=== PATIENT | male | born 1955 | race Caucasian/White ===

== ENCOUNTER 2018-08-21 07:40 | Outpatient (CLI) | payer OTHER, SELFPAY ==
[2018-08-21] VITALS (9 sets, daily range): BP systolic 116–139; BP diastolic 76–95; PULSE 60–70; RESP 16–18; TEMP 36; O2SAT 95–100
--- NOTE | 2018-08-21 07:42 | DI.RAD.S_ITS ---
PROCEDURE: PAIN SI JOINT INJECTION DEVON COMPARISON: None. INDICATIONS: SACROCOCCYGEAL DISORDER FINDINGS: Bilateral needle tip localization has been performed at the inferior aspect of each sacroiliac joint for steroid injection. IMPRESSION: Successful inferior sacroiliac joint needle tip localization bilaterally, for steroid injection. Dictated by: Duncan Das M.D. on 08/21/2018 at 9:35 Approved by: Duncan Das M.D. on 08/21/2018 at 9:36
[2018-08-21] MEDS: MIDAZOLAM 5 MG/5 ML VIAL IV (09:04)
[2018-08-21] MEDS: fentaNYL 100 MCG/2 ML INJ 50 MCG IV (09:05)
[2018-08-21] MEDS: IOPAMIDOL 15 ML VIAL 3 ML INJ (09:12)
[2018-08-21] MEDS: BUPIVACAINE 0.5% (PF) VIAL 2 ML INJ (09:12)
[2018-08-21] MEDS: BETAMETHASONE 30 MG/5 ML MDV 12 MG INJ (09:12)
--- NOTE | 2018-08-21 09:20 | PM.PROC.1 ---
Procedures Date/Time Date of procedure: 08/21/18 Time of procedure: 09:21 General Procedure description: PREOP Dx: Sacroiliac joint pain/DJD POST OP DX: Sacroiliac Joint Pain/DJD Procedures: Fluoroscopic guided contrast controlled bilateral sacroiliac joint injection Physician: Gunnar Belcher D.O. Indications: New is referred by Dr. Nunez for treatment of bilateral sacroiliac joint DJD Description of procedure Fluoroscopic guided, contrast controlled right sacroiliac joint injection Following denial of allergies and review of potential side effects and complications, including, but not necessarily limited to, infection, allergic reaction, local tissue breakdown, temporary as well as permanent nerve injury, paralysis, stroke and possible , the patient indicated that they understood and agreed to proceed. An informed consent was signed by the patient, witnessed by a nurse, and placed in the patient's chart. Additionally, other treatment options including modalities, medications, and physical therapy were reviewed with the patient. After review of previous anaesthesic history and IV conscious sedation the patient was deemed safe to proceed with todays procedure with IV conscious sedation as ASA class II designation. Safety time-out was performed to confirm patient ID, procedure to be performed and site of procedure. IV sedation was accomplished with a combination of 3mg of Versed and 50mcg of Fentanyl was administered by the RN after DO order, titrated to patient comfort during the course of the procedure while the patient remained responsive to all verbal commands In the prone position following sterile prep and drape of the pelvic region, the hyper lucency on in the inferior aspect of the sacroiliac joint was identified fluoroscopically the skin was anesthetized be a 25 gauge 1 eventual with approximately 2 cc of 1% lidocaine solution. At this point, a 22 gauge 3 in spinal needle was atraumatically introduced and advanced under fluoroscopic guidance into the inferior aspect of the right sacroiliac joint. Following negative aspiration, approximately 0.3 cc of Isovue-300 was injected confirming intra-articular placement without vascular uptake. Radiographic data, including multiple fluoroscopic views of the pelvis, reveals a spinal needle in the sacroiliac joint hyper lucent zone. Subsequent view show flow contrast tear superiorly and inferiorly within the joint capsule without vascular intrathecal uptake. At this point a total of 1cc or 0 8 of 0.5% Marcaine was combined with 1cc of 6mg of betamethasone was injected without incident. Attention was then refocused to the left sacroiliac joint where identical procedure was replicated. The procedure tolerated the procedure well without signs or symptoms of complications prior to transfer to the recovery area continued monitoring without incident. The patient was then transferred to the recovery area with a bur observed for an appropriate time after the injection. The patient reverted a vas score of 7 prior to the procedure and postprocedure vas of 1. Total fluoroscopy time: 22.7 sec Total conscious sedation time: 24 min Postop instructions The patient was provided with a pain like to continue to record the patient's response to the target specific procedure prior to the patient's follow-up visit with the referring physician. Additionally, specific post injection care instructions and a contact number to our office were provided if concerns arise regarding the possible complications associated with procedure are suspected. Gunnar Belcher D.O. Complications: none
--- NOTE | 2018-08-21 09:48 | PC.NURSE ---
Pt returned from procedure via wheelchair awake and alert, able to transfer from W/C to chair with standby assist. Resumed monitoring from Ngozi DOCKERY.
== END 2018-08-21 09:42 ==
LOC: RAD 07:42
PROVIDERS: PCP Family Medicine; Visit Provider Physical Medicine & Rehabilitation
DX: M53.3 Sacrococcygeal disorders, not elsewhere classified (principal); M47.898 Other spondylosis, sacral and sacrococcygeal region
CPT/HCPCS: 27096; 99152; J0702; J2250; J3010

== ENCOUNTER 2018-10-18 07:51 | Outpatient (CLI) | payer MEDICARE, OTHER, SELFPAY ==
[2018-10-18] VITALS (8 sets, daily range): BP systolic 127–142; BP diastolic 81–93; PULSE 64–80; RESP 16; TEMP 36.1; O2SAT 96–100
--- NOTE | 2018-10-18 07:54 | DI.RAD.S_ITS ---
PROCEDURE: PAIN L/S FACET INJ/BLK 1ST DEVON COMPARISON: None. INDICATIONS: SPONDYLOSIS FINDINGS: 6 intraoperative fluoroscopy images demonstrate needle placement at L4, L5 and S1 bilaterally. IMPRESSION: Fluoroscopy assistance for needle placement. Dictated by: Michelle Menezes M.D. on 10/18/2018 at 13:22 Approved by: Michelle Menezes M.D. on 10/18/2018 at 13:22
[2018-10-18] MEDS: fentaNYL 100 MCG/2 ML INJ 50 MCG IV (09:10)
[2018-10-18] MEDS: MIDAZOLAM 5 MG/5 ML VIAL IV (09:10)
[2018-10-18] MEDS: LIDOCAINE 1% 20 ML INJ 10 ML INJ (09:18)
[2018-10-18] MEDS: IOPAMIDOL 15 ML VIAL 3 ML INJ (09:18)
[2018-10-18] MEDS: BUPIVACAINE 0.5% (PF) VIAL 2 ML INJ (09:18)
[2018-10-18] MEDS: DEXAMETHASONE 10 MG/ML VIAL 20 MG IV (09:18)
--- NOTE | 2018-10-18 09:27 | PC.NURSE ---
pt tolerated procedure well. Pt able to get off the table with standby assist. Transferred pt via wheelchair to pre procedure room for continued monitoring with Ngozi DOCKERY.
--- NOTE | 2018-10-18 09:42 | PM.PROC.1 ---
Procedures Date/Time Date of procedure: 10/18/18 Time of procedure: 09:42 General Procedure description: Procedure description: 1. FACET ARTHROPATHY PROCEDURES: 1. BILATERAL- L4, L5 and S1 MB BLOCKS PHYSICIAN: DO JACKY Og is referred by for treatment of Bilateral Axial LBP. DESCRIPTION OF PROCEDURE Fluoroscopically guided, contrast-controlled bilateral L4, L5 and S1 medial branch blocks with 0.5cc of 0.5% Marcaine. Following review of allergy and review of potential side effects and complications, including, but not necessarily limited to, infection, allergic reaction, local tissue breakdown, nerve injury, paralysis, stroke and possible , the patient indicated that the patient understood and agreed to proceed. An informed consent document was signed by the patient, witnessed by a nurse, and placed in the patient's chart. After review of previous anaesthesic history and IV conscious sedation the patient was deemed safe to proceed with todays procedure with IV conscious sedation as ASA class II designation. Safety time-out was performed to confirm patient ID, procedure to be performed and site of procedure. IV sedation was accomplished with a combination of 2mg of Versed and 50mcg of Fentanyl was administered by the RN after DO order, titrated to patient comfort during the course of the procedure while the patient remained responsive to all verbal commands In the prone position, following sterile prep and drape of the lumbar region, the right L4, L5 and S1 anatomical location of the medial branch of the dorsal ramus was identified fluoroscopically. Subsequently an anesthetic skin wheal using 1% lidocaine solution was initiated at each of the anatomical spots. Subsequently then a 22-gauge 3.5-inch spinal needle was atraumatically introduced and advanced under fluoroscopic guidance at each of the corresponding sites at the right L4, L5 and S1 MB. After negative aspiration, 0.2 cc of Isovue 200 was injected, confirming placement without vascular or intrathecal uptake. Subsequently then 0.5 cc of 0.5% Marcaine solution was injected at each of the corresponding sites at the right L4, L5 and S1 medial branch locations. The identical procedure was replicated on the left. The patient tolerated the procedure well without signs or symptoms of complications prior to transfer to the recovery area continued monitoring without incident. Post-procedure, the patient was monitored initiating provocative activities to measure the amount of relief from block of the facetogenic pain. The patient reported a VAS of 7 prior to the procedure and a post-procedure VAS of 1. It has been a pleasure to assist in the diagnostic and therapeutic care of your patient. Total Fluoroscopy Time: 24.8 seconds Total Conscious Sedation Time: 24min POST OP INSTRUCTIONS The patient was provided with a Pain Log to complete over the next several hours and subsequent days prior to the patient's follow up with the ordering physician. If the patient has floor and wall applier liquid relief to the solution applied, then they may be a candidate for medial branch rhizotomy. The patient is aware, was provided, once again, with a Pain Log and will follow up with the referring physician for review and clinical correlation Gunnar Beclher DO Complications: none
== END 2018-10-18 09:58 | disposition home or self-care (01) ==
LOC: RAD 07:53
PROVIDERS: PCP Family Medicine; Visit Provider Physical Medicine & Rehabilitation
DX: M47.816 Spondylosis without myelopathy or radiculopathy, lumbar region (principal); M47.817 Spondylosis without myelopathy or radiculopathy, lumbosacral region
CPT/HCPCS: 64493; 64494; 99152; J0702; J1100; J2250; J3010

== ENCOUNTER 2018-12-25 07:22 | Outpatient (CLI) | payer MEDICARE, OTHER, SELFPAY ==
[2018-12-25] VITALS (12 sets, daily range): BP systolic 128–147; BP diastolic 84–97; PULSE 61–80; RESP 14–18; TEMP 36.1; O2SAT 66–100
--- NOTE | 2018-12-25 07:25 | DI.RAD.S_ITS ---
PROCEDURE: PAIN L/S MED/LAT N RFA BILAT INDICATIONS: SPONDYLOSIS FINDINGS: Fluoroscopic spot filming was performed to verify placement of spinal needles at the L4, L5, S1 level(s), as labeled on the films. Appropriate location(s) of the needle tip(s) was confirmed by injection of iodinated contrast. Dictated by: Renny Ann M.D. on 12/25/2018 at 10:28 Approved by: Renny Ann M.D. on 12/25/2018 at 10:34
[2018-12-25] MEDS: MIDAZOLAM 5 MG/5 ML VIAL IV (08:36)
[2018-12-25] MEDS: fentaNYL 100 MCG/2 ML INJ 50 MCG IV (08:37)
[2018-12-25] MEDS: LIDOCAINE 1% 20 ML 10 ML INJ (09:00)
--- NOTE | 2018-12-25 09:21 | P.PCN_ITS ---
Procedures Date/Time Date of procedure: 12/25/18 Time of procedure: 09:22 General Procedure description: PREOP DIAGNOSIS 1. RECALCITRANT FACET ARTHROPATHY, POST OP DIAGNOSIS 1. RECALCITRANT FACET ARTHROPATHY PROCEDURES 1. BILATERAL L4 AND L5 MEDIAL BRANCH RADIOFREQUENCY NEUROTOMY AND S1 DORSAL RAMUS BRANCH RADIOFREQUENCY NEUROTOMY, PHYSICIAN: Gunnar Belcher DO INDICATIONS: New is referred by Dr. Nunez for treatment of facet arthropathy. DESCRIPTION OF PROCEDURE Right L4 and L5 medial branch radiofrequency neurotomy and right S1 dorsal ramus radiofrequency neurotomy under fluoroscopy with conscious sedation. The patient is well known to this clinic having undergone previous facet injections with good but temporary relief. The patient has experienced appropriate, concordant relief with previous facet and median branch blocks but the patient's pain has been recalcitrant to further conservative measures. Therefore, based upon the patient's relief and persistent symptoms, the patient is considered an appropriate candidate for facet rhizotomy. All of the patient's questions regarding the risks versus benefits of the procedure, including, but not limited to, bleeding, infection, temporary as well as lasting nerve injury, paralysis, stroke, and , as well treatment alternatives were answered to satisfaction. After obtaining informed consent, denial of pertinent drug allergies, as well as being made aware of the potential risks of bleeding, infection, spinal cord trauma, paralysis, temporary and permanent nerve damage, seizure, stroke, and possible , the patient was brought to the fluoroscopy suite and positioned prone on the fluoroscopy table. The lumbar region was prepped with Betadine and covered with a fenestrated drape in the usual sterile fashion. Appropriate monitors applied including pulse oximeter, pulse, and blood pressure for regular monitoring throughout the procedure. After review of previous anaesthesic history and IV conscious sedation the patient was deemed safe to proceed with todays procedure with IV conscious sedation as ASA class II designation. Safety time-out was performed to confirm patient ID, procedure to be performed and site of procedure. IV sedation was accomplished with a combination of 5mg of Versed and 50mcg of Fentanyl administered by the RN after DO order, titrated to patient comfort during the course of the procedure while the patient remained responsive to all verbal commands. After local infiltration using 1% lidocaine, under fluoroscopic guidance, a 10- cm RF insulated needle with a 10-mm active tip was positioned parallel to the junction of the right sacral ala and the superior articulating process where the S1 dorsal ramus resides. Needle placement was confirmed with sensory stimulation at 50 Hz, with motor stimulation of .5v on the right which produced local stimulation without radicular component. The stimulation was then increased to 1.5v with, once again, only local multifidus stimulation without radicular component. This was then followed by two discreet lesions performed at 80 degrees Celsius for 90 seconds each. The needle was then removed and the identical procedure was performed along the length of the right L5 medial branch with motor stimulation at .7v on the right. The identical procedure was once again performed along the length of the right L4 medial branch with motor stimulation of .5v on the right. The identical procedure was repeated on the left. The patient tolerated the procedure well without signs or symptoms of complications prior to transfer to the recovery area continued monitoring without incident. The patient was then transferred to the recovery area where they were observed for an appropriate period of time after the injection. The patient reported a VAS score of 9 prior to the procedure and a post-procedure VAS of 0. Total Fluoroscopy Time: 22.7 seconds Total Conscious Sedation Time: 34min POST OP INSTRUCTIONS The patient was provided a Pain Log to continue to record the patient's response to the target-specific procedure prior to the patient's follow-up visit with the referring physician. Additionally, specific post-injection care instructions and a contact number to our office were provided if concerns arise regarding possible complications associated with the procedure are suspected. Gunnar Belcher DO Complications: none
[2018-12-25] MEDS: BUPIVACAINE 0.25% (PF) VIAL 5 ML INJ (09:26)
--- NOTE | 2018-12-25 09:37 | PC.NURSE ---
recieved via w/c, post procedure,able to transfer self from w/c to recliner, without assist, water provided and tolerated, assuming care from Tisha Daniel Rn, pt reports, pain free.
--- NOTE | 2018-12-25 15:53 | PC.NURSE ---
Late entry: Post procedure note--Patient tolerated procedure well. VSS with procedural sedation. O2 sat WNL. No complaints of pain when transfered from procedure table to wheelchair. Transported for post procedure monitoring and discharge via w/c. Report given to Gautam Moreau RN
== END 2018-12-25 09:35 | disposition home or self-care (01) ==
LOC: RAD 07:23
PROVIDERS: PCP Family Medicine; Visit Provider Physical Medicine & Rehabilitation
DX: M47.817 Spondylosis without myelopathy or radiculopathy, lumbosacral region (principal); M47.816 Spondylosis without myelopathy or radiculopathy, lumbar region
CPT/HCPCS: 64635; 64636; 99152; 99153; J2250; J3010

== ENCOUNTER → 2019-08-16 10:19 | Outpatient (CLI) | payer MEDICARE, OTHER, SELFPAY ==
--- NOTE | 2019-08-16 | DI.RAD.S_ITS ---
PROCEDURE: XR CERVICAL SPINE 1V INDICATIONS: Other spondylosis with myelopathy, cervical region TECHNIQUE: Single lateral view of the cervical spine acquired. COMPARISON: [facility], RG, XR C-SPINE 4-6V, 11/02/2017, 12:03. FINDINGS: Bones: No fractures or dislocations to the C7 level. No suspicious bony lesions. Straightening of the normal lordotic curvature. Multilevel degenerative endplate sclerosis and spurring. Diffuse facet arthropathy. Postoperative changes related to C5-C7 ACDF with interbody cage graft. Hardware appears intact. There is expected postoperative alignment. Grade 1 anterolisthesis of C3 on C4 and C4 on C5. Mild narrowing of the remaining cervical disc spaces. Soft tissues: No prevertebral soft tissue swelling. IMPRESSION: Postsurgical changes from C5-C7. Elsewhere, unchanged cervical spondylosis and facet arthropathy. Multilevel spondylolisthesis unchanged. Dictated by: Renny Ann M.D. on 08/16/2019 at 12:57 Approved by: Renny Ann M.D. on 08/16/2019 at 12:59
== END ==
PROVIDERS: PCP Family Medicine; Referring Provider Neurological Surgery; Visit Provider Neurological Surgery
DX: M47.12 Other spondylosis with myelopathy, cervical region (principal); M47.22 Other spondylosis with radiculopathy, cervical region; M43.12 Spondylolisthesis, cervical region; Z98.1 Arthrodesis status
CPT/HCPCS: 72020

== ENCOUNTER → 2020-04-04 07:58 | Outpatient (CLI) | payer MEDICARE, OTHER, SELFPAY ==
[2020-04-04 09:07] LABS: Add Manual Diff / Slide Review NO; Basophils Absolute Auto 0 /uL (0-100); Basophils Percent Auto 0.7 % (0-2); Eosinophils Absolute Auto 100 /uL (0-450); Eosinophils Percent Auto 1.5 % (2-4); Hematocrit 44.2 % (41-53); Hemoglobin 15.9 g/dL (13.5-17.5); Lymphocytes Absolute Auto 1500 /uL (1100-4500); Lymphocytes Percent Auto 36.8 % (25-40); Mean Corpuscular Hemoglobin 34.2 PG (26-34); Mean Corpuscular Volume 94.9 fL (80-100); Monocytes Absolute Auto 600 /uL (0-900); Monocytes Percent Auto 13.6 % (3-14); Neutrophils Absolute Auto 1900 /uL (1500-7000); Neutrophils Percent Auto 47.4 % (50-75); Platelet Count 162 X10^3/uL (150-400); Red Blood Cell Count 4.66 X10^6/uL (4.5-5.9); Red Cell Distribution Width 12.4 % (11.6-14.8); White Blood Cell Count 4.1 X10^3/uL (4.5-11.0)
[2020-04-04 09:13] LABS: Hemoglobin A1C% w Est Avg Glu 5.7 % (4.0-6.0)
[2020-04-04 09:15] LABS: Alanine Aminotransferase 30 IU/L (<50); Albumin 4.5 g/dL (3.5-5.0); Albumin Globulin Ratio 1.5 (1.0-2.8); Alkaline Phosphatase 45 U/L (38-126); Aspartate Aminotransferase 38 IU/L (17-59); BUN Creatinine Ratio 12.4 (6-22); Bilirubin Total 0.6 mg/dL (0.2-1.3); Blood Urea Nitrogen 12 mg/dL (9-20); Calcium 9.8 mg/dL (8.4-10.2); Carbon Dioxide 33 mmol/L (22-32); Chloride 92 mmol/L (98-107); Cholesterol 141 mg/dL (140-199); Estimated Glomerular Filt Rate > 60.0 mL/min (>60); Globulin 3.1 g/dL (1.7-4.1); Glucose 102 mg/dL (80-110); HDL Cholesterol 71 mg/dL (40-60); HEMOLYSIS < 15 (0-50); LDL Cholesterol Calculated 63 mg/dL (<100); Potassium 4.6 mmol/L (3.4-5.1); Sodium 129 mmol/L (137-145); Total Protein 7.6 g/dL (6.3-8.2); Triglycerides 34 mg/dL (35-150)
[2020-04-04 09:40] LABS: Prostate Specific Antigen Scrn 0.862 ng/mL (0.1-4.0)
[2020-04-04 09:41] LABS: TSH w/ Reflex to FT4 0.91 uIU/mL (0.47-4.68)
[2020-04-04 10:24] LABS: Creatinine Urine Random 118.3 mg/dL
[2020-04-04 10:29] LABS: Microalbumi Creatinin Ratio Ur 10.9 ug/mg CR (<30); Microalbumin Urine Random 1.3 mg/dL (0-1.6)
== END ==
PROVIDERS: PCP Family Medicine; Referring Provider Family Medicine; Visit Provider Family Medicine
DX: I10 Essential (primary) hypertension (principal); R73.03 Prediabetes; Z12.5 Encounter for screening for malignant neoplasm of prostate; Z13.220 Encounter for screening for lipoid disorders; Z13.29 Encounter for screening for other suspected endocrine disorder
CPT/HCPCS: 36415; 80053; 80061; 82043; 82570; 83036; 84443; 85025; G0103

== ENCOUNTER → 2020-05-04 11:43 | Outpatient (CLI) | payer MEDICARE, OTHER, SELFPAY ==
--- NOTE | 2020-05-04 | DI.RAD.S_ITS ---
PROCEDURE: XR CERVICAL SPINE 1V INDICATIONS: Other spondylosis with radiculopathy, cervical region TECHNIQUE: Single lateral view of the cervical spine acquired. COMPARISON: [facility], CR, XR CERVICAL SPINE 1V, 08/16/2019, 10:14. FINDINGS: Bones: Postsurgical changes are seen from anterior fusion extending from the level of C5 through C7. The hardware is intact. No acute osseous fracture is seen. There is mild straightening of the cervical spine, which may be related to positioning. Mild facet hypertrophy and uncovertebral joint hypertrophy are seen at multiple levels. . Soft tissues: No prevertebral soft tissue swelling. IMPRESSION: Postsurgical changes again seen from C5 through C7. Multilevel mild spondylosis is redemonstrated. Dictated by: Marcelo Odonnell M.D. on 05/04/2020 at 16:00 Approved by: Marcelo Odonnell M.D. on 05/04/2020 at 16:02
== END ==
PROVIDERS: PCP Family Medicine; Referring Provider Neurological Surgery; Visit Provider Neurological Surgery
DX: M47.12 Other spondylosis with myelopathy, cervical region (principal); M47.22 Other spondylosis with radiculopathy, cervical region
CPT/HCPCS: 72020

== ENCOUNTER → 2020-09-01 10:02 | Outpatient (CLI) | payer MEDICARE, OTHER, SELFPAY ==
[2020-09-01 12:00] LABS: Alanine Aminotransferase 22 IU/L (<50); Albumin 4.2 g/dL (3.5-5.0); Albumin Globulin Ratio 1.4 (1.0-2.8); Alkaline Phosphatase 45 U/L (38-126); Aspartate Aminotransferase 40 IU/L (17-59); BUN Creatinine Ratio 11.8 (6-22); Bilirubin Total 0.8 mg/dL (0.2-1.3); Blood Urea Nitrogen 11 mg/dL (9-20); Calcium 9.5 mg/dL (8.4-10.2); Carbon Dioxide 29 mmol/L (22-32); Chloride 93 mmol/L (98-107); Estimated Glomerular Filt Rate > 60.0 mL/min (>60); Glucose 98 mg/dL (80-110); HEMOLYSIS < 15 (0-50); Potassium 4.2 mmol/L (3.4-5.1); Sodium 127 mmol/L (137-145); Total Protein 7.2 g/dL (6.3-8.2)
== END ==
PROVIDERS: PCP Family Medicine; Referring Provider Family Medicine; Visit Provider Family Medicine
DX: I10 Essential (primary) hypertension (principal)
CPT/HCPCS: 36415; 80053

== ENCOUNTER → 2020-09-04 10:44 | Outpatient (CLI) | payer MEDICARE, OTHER, SELFPAY ==
--- NOTE | 2020-09-04 10:46 | DI.RAD.S_ITS ---
PROCEDURE: XR LUMBAR SPINE MIN 4V INDICATIONS: BACK PAIN TECHNIQUE: 5 views of the lumbar spine were acquired, including bilateral oblique views. COMPARISON: None. FINDINGS: Bones: 5 nonrib-bearing vertebrae are present. There is normal bony alignment. No vertebral body compression fractures. No suspicious bony lesions. Facet osteoarthritis is mild at L4-5 and adve-gn-qrsimetm at L5-S1. Soft tissues: Overlying bowel gas pattern is normal. No suspicious soft tissue calcifications. Oblique images: No pars defects. IMPRESSION: Low lumbosacral spine facet osteoarthritis as noted, no spinal or foraminal stenosis is seen. No prior trauma. Dictated by: Duncan Das M.D. on 09/04/2020 at 14:35 Approved by: Duncan Das M.D. on 09/04/2020 at 14:36
== END ==
PROVIDERS: PCP Family Medicine; Referring Provider Physical Medicine & Rehabilitation; Visit Provider Physical Medicine & Rehabilitation
DX: M47.817 Spondylosis without myelopathy or radiculopathy, lumbosacral region (principal); M53.3 Sacrococcygeal disorders, not elsewhere classified
CPT/HCPCS: 72110

== ENCOUNTER → 2020-09-17 16:08 | Outpatient (CLI) | payer MEDICARE, OTHER, SELFPAY ==
--- NOTE | 2020-09-17 16:15 | DI.MRI.S_ITS ---
PROCEDURE: MR LUMBAR SPINE WO CON INDICATIONS: Left L4-5 transforaminal TAMMY TECHNIQUE: Noncontrast sagittal T1 spin echo and T2 fast echo, sagittal STIR, axial T1 and T2 fast spin echo through the lumbar spine. In cases with scoliosis, additional coronal T2 fast spin echo may be performed. COMPARISON: None. FINDINGS: Image quality: Excellent. Alignment and Curvature: There is normal bony alignment. Bone Marrow: Benign, intraosseous hemangioma noted in the L4 vertebral body. No acute vertebral body compression fractures. Spinal Cord: Conus medullaris terminates at the L1 level. Visualized cord demonstrates normal signal and size. Paraspinous Soft Tissues: No paravertebral masses. T12-L1: Normal appearance. L1-L2: Normal appearance. L2-L3: Loss of disc signal. Minimal, diffuse disc bulge. Mild bilateral facet hypertrophy. No central stenosis. Mild bilateral neural foraminal narrowing. No neural compression. Fissures noted in the anterior and posterior annulus. L3-L4: Loss of disc signal. Mild, diffuse disc bulge. Mild bilateral facet hypertrophy. Mild narrowing of the central canal. Mild bilateral neural foraminal narrowing. No neural compression. L4-L5: Loss of disc signal. Mild, diffuse disc bulge. Small central disc protrusion. Mild bilateral facet hypertrophy. Mild narrowing of the central canal. Mild to moderate bilateral neural foraminal narrowing. No neural compression. Fissures noted in the anterior and posterior annulus. L5-S1: Normal appearance. IMPRESSION: 1. Mild multilevel degenerative disc disease. 2. Mild multilevel facet arthropathy. 3. No severe central canal narrowing. 4. No severe neural foraminal narrowing. 5. No neural compression. 6. L2-L3 and L4-L5 disc annulus fissures. Dictated by: Ludmila Sanchez MD, PhD on 09/18/2020 at 11:33 Approved by: Ludmila Sanchez MD, PhD on 09/18/2020 at 11:39
== END ==
PROVIDERS: PCP Family Medicine; Referring Provider Physical Medicine & Rehabilitation; Visit Provider Physical Medicine & Rehabilitation
DX: M51.26 Other intervertebral disc displacement, lumbar region (principal); M51.36 Other intervertebral disc degeneration, lumbar region; M47.816 Spondylosis without myelopathy or radiculopathy, lumbar region
CPT/HCPCS: 72148

== ENCOUNTER → 2020-10-16 09:46 | Outpatient (CLI) | payer MEDICARE, OTHER, SELFPAY ==
[2020-10-16 10:56] LABS: COVID19 -Nasal RAPID Negative (Negative)
== END ==
PROVIDERS: PCP Family Medicine; Visit Provider Surgery
DX: Z20.822 Contact with and (suspected) exposure to COVID-19 (principal)
CPT/HCPCS: 87635; C9803

== ENCOUNTER 2020-10-17 14:53 | Emergency (ER) | payer MEDICARE, OTHER, SELFPAY ==
[2020-10-17 15:08] VITALS: BP 142/93; PULSE 99; RESP 18; TEMP 36.5; O2SAT 98; BMI 25.8
[2020-10-17 16:09] LABS: Add Manual Diff / Slide Review NO; Basophils Absolute Auto 0 /uL (0-100); Basophils Percent Auto 0.7 % (0-2); Eosinophils Absolute Auto 0 /uL (0-450); Eosinophils Percent Auto 0.3 % (2-4); Hematocrit 43.2 % (41-53); Hemoglobin 15.2 g/dL (13.5-17.5); Lymphocytes Absolute Auto 900 /uL (1100-4500); Lymphocytes Percent Auto 16.6 % (25-40); Mean Corpuscular HGB Conc 35.2 % (30-36); Mean Corpuscular Hemoglobin 34.8 PG (26-34); Mean Corpuscular Volume 99.1 fL (80-100); Monocytes Absolute Auto 600 /uL (0-900); Neutrophils Absolute Auto 3900 /uL (1500-7000); Neutrophils Percent Auto 71.4 % (50-75); Platelet Count 171 X10^3/uL (150-400); Red Blood Cell Count 4.36 X10^6/uL (4.5-5.9); Red Cell Distribution Width 12.3 % (11.6-14.8); White Blood Cell Count 5.4 X10^3/uL (4.5-11.0)
[2020-10-17 16:10] LABS: Alanine Aminotransferase 22 IU/L (<50); Albumin 4.4 g/dL (3.5-5.0); Albumin Globulin Ratio 1.5 (1.0-2.8); Alkaline Phosphatase 42 U/L (38-126); Aspartate Aminotransferase 41 IU/L (17-59); BUN Creatinine Ratio 9.3 (6-22); Bilirubin Total 0.3 mg/dL (0.2-1.3); Blood Urea Nitrogen 8 mg/dL (9-20); Calcium 9.5 mg/dL (8.4-10.2); Carbon Dioxide 29 mmol/L (22-32); Chloride 94 mmol/L (98-107); Estimated Glomerular Filt Rate > 60.0 mL/min (>60); Glucose 132 mg/dL (80-110); HEMOLYSIS < 15 (0-50); Lipase 76 U/L (23-300); Potassium 4.8 mmol/L (3.4-5.1); Sodium 129 mmol/L (137-145); Total Protein 7.4 g/dL (6.3-8.2)
--- NOTE | 2020-10-17 19:19 | ED_ITS ---
HPI - General Adult General Chief complaint: Abdominal Pain Stated complaint: severe abd pain Time Seen by Provider: 10/17/20 19:10 Source: patient Mode of arrival: Ambulatory Limitations: no limitations History of Present Illness HPI narrative: Patient is a 65-year-old male who is here for evaluation of abdominal discomfort. He states that he last urinated this morning. He states that this evening he felt like he had to have a bowel movement and felt like he was constipated so he went into the restroom in as he. Down to go to the bathroom he had severe abdominal discomfort. He was able to pass a small amount of stool. No fevers. No vomiting. Has never had any problems with urinary retention in the past. Describes pain in his lower abdomen. Related Data Home Medications Medication Instructions Recorded Confirmed duloxetine 20 mg capsule,delayed 20 mg PO DAILY cap 04/08/20 09/09/20 release (Cymbalta) Previous Rx's Medication Instructions Recorded lisinopril 20 1 tab PO DAILY #90 tab 04/13/20 mg-hydrochlorothiazide 12.5 mg tablet celecoxib 200 mg capsule (Celebrex) 200 mg PO DAILY #90 cap MDD 200 mg 05/08/20 alprazolam 0.5 mg tablet 0.5 mg PO BID PRN #60 tab 10/14/20 Allergies Allergy/AdvReac Type Severity Reaction Status Date / Time citalopram [From Celexa] AdvReac suicidal Verified 10/17/20 15:08 ideation diclofenac AdvReac Nausea Verified 10/17/20 15:08 morphine AdvReac Hallucinati Verified 10/17/20 15:08 ons Review of Systems Constitutional Constitutional: Denies fever(s) Cardiovascular Cardiovascular: Reports system reviewed and no additional complaints, except as documented Respiratory Respiratory: Reports system reviewed and no additional complaints, except as documented Gastrointestinal Gastrointestinal: Reports as per HPI Genitourinary Genitourinary: Reports oliguria and Reports difficulty urinating Musculoskeletal Musculoskeletal: Reports system reviewed and no additional complaints, except as documented Integumentary/Breasts Skin/Breast: Reports system reviewed and no additional complaints, except as documented Neurologic Neurologic: Reports system reviewed and no additional complaints, except as documented Psychiatric Psychiatric: Reports system reviewed and no additional complaints, except as documented Hematologic/Lymphatic On Anticoagulants: No Allergic/Immunologic Allergic/Immunologic: Reports system reviewed and no additional complaints, except as documented Patient History Medical History Cervical spine disease (~2017) Chicken pox Chronic back pain (~2015) Foot pain (~2015) Hearing impairment Herniated nucleus pulposus, L4-5 Hypertension Leg fracture (~1988) Pre-diabetes Sensory peripheral neuropathy Tinnitus Well adult exam Surgical History Anesthesia History of surgery (~1988) S/P cervical spinal fusion (~2019) Family History Father Alzheimer's disease Sister Alcoholism Sister Alcoholism Grandfather No problems noted. Social History Smoking Status: Former smoker Tobacco: How many years used: 2 alcohol intake: current (Occasional drinker, 1-2 drinks per week every 3 months ) substance use type: does not use Smoking Status: Former smoker alcohol intake frequency: 0-2 drinks per day Substance Use Type: does not use Exam Initial Vital Signs Initial Vital Signs: Vital Signs Temperature 97.7 F 10/17/20 15:08 Pulse Rate 99 H 10/17/20 15:08 Respiratory Rate 18 10/17/20 15:08 Blood Pressure 142/93 H 10/17/20 15:08 Pulse Oximetry 98 10/17/20 15:08 Const General: cooperative and healthy appearing [facility] Head: normal to inspection and normocephalic Eyes General: appearance normal, both eyes and all related structures Neck Neck: normal visual inspection Resp Effort & Inspection: normal respiratory effort Cardio Rate: regular rate GI Palpation: tender (Lower abdomen) Skin General: no rashes or lesions noted Neuro General: patient alert, patient awake and moves all extremities Extrem General: normal to inspection and capillary refill normal Psych Appearance: grossly normal and well kempt Course Orders Ordered: ED Orders 10/17/20 15:25 Complete Blood Count AUTO DIFF Stat Comprehensive Metabolic Panel Stat Lipase Stat Vital Signs Vital signs: Vital Signs - 8 hr 10/17/20 20:34 Pulse Rate 78 Respiratory Rate 14 Blood Pressure 182/93 H Pulse Oximetry 100 Medical Decision Making Lab Data Lab results reviewed: Yes I reviewed the patient's lab results. Result diagrams: 10/17/20 15:25 10/17/20 15:25 Labs: Lab Results 07/24/21 07/24/21 Range/Units 15:25 15:25 WBC 5.4 (4.5-11.0) X10^3/uL RBC 4.36 L (4.5-5.9) X10^6/uL Hgb 15.2 (13.5-17.5) g/dL Hct 43.2 (41-53) % MCV 99.1 (80-100) fL MCH 34.8 H (26-34) PG MCHC 35.2 (30-36) % RDW 12.3 (11.6-14.8) % Plt Count 171 (150-400) X10^3/uL Neut % (Auto) 71.4 (50-75) % Lymph % (Auto) 16.6 L (25-40) % [place] % (Auto) 11.0 (3-14) % Eos % (Auto) 0.3 L (2-4) % Baso % (Auto) 0.7 (0-2) % Neut # (Auto) 3900 (4788-4156) /uL Lymph # (Auto) 900 L (8777-5089) /uL [place] # (Auto) 600 (0-900) /uL Eos # (Auto) 0 (0-450) /uL Baso # (Auto) 0 (0-100) /uL Sodium 129 L (137-145) mmol/L Potassium 4.8 (3.4-5.1) mmol/L Chloride 94 L (98-107) mmol/L Carbon Dioxide 29 (22-32) mmol/L BUN 8 L (9-20) mg/dL Creatinine 0.86 (0.66-1.25) mg/dL Estimated GFR > 60.0 (>60) mL/min BUN/Creatinine Ratio 9.3 (6-22) Glucose 132 H (80-110) mg/dL Calcium 9.5 (8.4-10.2) mg/dL Total Bilirubin 0.3 (0.2-1.3) mg/dL AST 41 (17-59) IU/L ALT 22 (<50) IU/L Alkaline Phosphatase 42 (38-126) U/L Total Protein 7.4 (6.3-8.2) g/dL Albumin 4.4 (3.5-5.0) g/dL Globulin 3.0 (1.7-4.1) g/dL Albumin/Globulin Ratio 1.5 (1.0-2.8) Lipase 76 (23-300) U/L Urine Dip Bedside Urine Glucose Negative Bedside Urine Bilirubin - Negative Bedside Urine Ketone - Negative Urine Specific [place] 1.015 Bedside Urine Occult Blood - Negative Bedside Urine pH 7.0 Bedside Urine Protein - Negative Bedside Urine Urobilinogen - Negative Bedside Urine Nitrite - Negative Bedside Urine Leukocytes - Negative Esterase Point of care testing: Urine Dip Bedside Urine Glucose Negative Bedside Urine Bilirubin - Negative Bedside Urine Ketone - Negative Urine Specific [place] 1.015 Bedside Urine Occult Blood - Negative Bedside Urine pH 7.0 Bedside Urine Protein - Negative Bedside Urine Urobilinogen - Negative Bedside Urine Nitrite - Negative Bedside Urine Leukocytes - Negative Esterase MDM Narrative Medical decision making narrative: Bladder scan does show greater than 600 cc of urine. Urinary catheter was placed. There was no signs of any infection. His creatinine is unremarkable. He has a soft abdomen and states that he feels much better after the catheter is placed. I suspect his symptoms earlier today are related to the urinary retention. Does not appear that this is caused by an infection. I have a high suspicion that this is a prostate issue. Had a discussion about the catheter. We will leave it in and discharge home with i jerricaions to follow-up with his primary doctor. He was also given instructions to follow-up with urology he expressed understanding and agreement. Discharge Plan Departure Patient Disposition: Home Clinical Impression: Acute urinary retention Instructions: How to Care for Your Cantor Catheter -- Male Activity Restrictions/Additional Instructions: I recommend that you keep your scheduled colonoscopy appointment on Monday like we discussed. I also recommend on Monday you contact your primary doctor in the Urology Department at the number provided below for a follow-up. Return to the emergency department for any new or worsening symptoms Prescriptions: No Action lisinopril-hydrochlorothiazide 20-12.5 mg tablet 1 tab PO DAILY Qty: 90 RF: 3 celecoxib [Celebrex] 200 mg capsule 200 mg PO DAILY MDD 200 mg Qty: 90 RF: 2 alprazolam 0.5 mg tablet 0.5 mg PO BID PRN (Reason: anxiety) Qty: 60 RF: 2 duloxetine [Cymbalta] 20 mg capsule,delayed release(DR/EC) 20 mg PO DAILY RF: 0 Referrals: Karely Henderson MD [Physician] - Isra Benitez DO [Primary Care Provider] -
[2020-10-17 20:34] VITALS: BP 182/93; PULSE 78; RESP 14; O2SAT 100
== END 2020-10-17 20:35 | disposition home or self-care (01) ==
PROVIDERS: Emergency Medicine; Emergency Provider Emergency Medicine; PCP Family Medicine
DX: R33.8 Other retention of urine (principal)
CPT/HCPCS: 51702; 51798; 80053; 81003; 83690; 85025; 99283

== ENCOUNTER 2020-10-19 08:47 | Day surgery (SDC) | payer MEDICARE, OTHER, SELFPAY ==
[2020-10-19] MEDS: LACTATED RINGERS 1,000 ML 200 ML IV (09:03)
[2020-10-19 09:17] VITALS: BP 159/90; PULSE 76; RESP 16; TEMP 36.8; O2SAT 100; BMI 25.8
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
[2020-10-19] MEDS: MIDAZOLAM 5 MG/5 ML VIAL IV (10:15)
[2020-10-19] MEDS: fentaNYL 250 MCG/5 ML INJ IV (10:15)
--- NOTE | 2020-10-19 10:35 | PM.OP.ENDO ---
Operative Date/Time/Diagnoses Date of procedure: 10/19/20 Time of procedure: 10:35 Pre-op diagnosis: Screening colonoscopy Post-op diagnosis: same Procedure & Clinicians Study performed: Colonoscopy Same procedure as scheduled: Yes Indications: Screening Surgeon: Avni Segura Procedure Notes Procedure in detail: Medications: Conscious sedation using 6mg IV midazolam and 100mcg IV of fentanyl The history and physical was performed/updated and the patient is ASA class is 2. The procedure was discussed in detail with the patient. Potential risks complications including infection, bleeding, missed diagnosis, perforation, need for surgery, and were explained. Their questions were answered and informed consent was obtained. Patient was brought to the procedure room and placed standard monitoring equipment. The patient's vital signs were monitored continuously throughout the entire procedure. Prior to starting time-out was performed. The patient was placed in the left lateral recumbent position. Procedural sedation was administered. Examination began with a thorough inspection of the perianal area there was no evidence of fissures, fistulae, external hemorrhoids or cutaneous malignancy. The colonoscopy scope was then placed into the anal canal and was advanced to the cecum, which was identified by the ileocecal valve, the appendiceal orifice and the confluence of the taenia. The scope was then slowly withdrawn examining colon thoroughly in all directions, irrigating it of any residual stool. FINDINGS 1. Normal healthy colon 2. No masses or polyps The patient tolerated the procedure well. They will be discharged once criteria are met. The prep was of good/excellent quality. The withdrawl time was 6 minutes. The sedation time was 21 minutes. Specimen(s): none sent Complications: none Impression: Normal colonoscopy Post-procedure Recommendations: Colonscopy in 10 years Disposition: same day surgery
[2020-10-19 10:36] VITALS: BP 134/78; PULSE 67; RESP 11; TEMP 36.3; O2SAT 95
[2020-10-19 10:41] VITALS: BP 131/78; PULSE 68; RESP 10; O2SAT 95
[2020-10-19 10:50] VITALS: BP 136/87; PULSE 82; RESP 11; O2SAT 98
[2020-10-19 10:58] VITALS: BP 153/95; PULSE 73; RESP 18; TEMP 36.5; O2SAT 98
--- NOTE | 2020-10-19 11:09 | SUR.PHASEII ---
Pt given discharge instructions and states he understands them. Pt had coffee and denies nausea and vomiting. Pt denies pain. No complaints voiced.
== END 2020-10-19 11:12 | disposition home or self-care (01) ==
PROVIDERS: PCP Family Medicine; Referring Provider Surgery; Visit Provider Surgery
PROC: 0DJD8ZZ Inspection of Lower Intestinal Tract, Via Natural or Artificial Opening Endoscopic (ICD-10-PCS; CPT 45378; principal; 2020-10-19 10:00)
DX: Z12.11 Encounter for screening for malignant neoplasm of colon (principal); R73.03 Prediabetes; I10 Essential (primary) hypertension; G60.8 Other hereditary and idiopathic neuropathies
CPT/HCPCS: G0121; 82962; 99152; J2250; J3010

== ENCOUNTER → 2020-10-27 08:54 | Outpatient (CLI) | payer MEDICARE, OTHER, SELFPAY | PROVIDERS: PCP Family Medicine; Referring Provider Urology; Visit Provider Urology | DX: R33.8 Other retention of urine (principal); Z80.42 Family history of malignant neoplasm of prostate | CPT/HCPCS: 51702; 51798; 87077; 87086; 87186; 99214 ==

== ENCOUNTER → 2020-11-16 08:08 | Outpatient (CLI) | payer MEDICARE, OTHER, SELFPAY ==
[2020-11-16 12:53] LABS: COVID19 -Nasal RAPID Negative (Negative)
== END ==
PROVIDERS: PCP Family Medicine; Visit Provider Physical Medicine & Rehabilitation
DX: Z20.822 Contact with and (suspected) exposure to COVID-19 (principal)
CPT/HCPCS: 87635; C9803

== ENCOUNTER 2020-11-17 12:52 | Outpatient (CLI) | payer MEDICARE, OTHER, SELFPAY ==
[2020-11-17] VITALS (9 sets, daily range): BP systolic 119–161; BP diastolic 71–90; PULSE 79–93; RESP 12–18; TEMP 36.5; O2SAT 95–99
--- NOTE | 2020-11-17 12:54 | DI.RAD.S_ITS ---
PROCEDURE: PAIN L/S TRANSFORAMINAL INJECT INDICATIONS: SPONDYLOSIS COMPARISON: [facility], CR, XR LUMBAR SPINE MIN 4V, 09/04/2020, 10:43. FINDINGS: Fluoroscopic spot filming was performed to verify placement of a spinal needle at the L4-L5 level, as labeled on the films. Appropriate location of the needle tip was confirmed by injection of iodinated contrast. IMPRESSION: Intraprocedural examination within normal limits. Dictated by: Kyle Morris M.D. on 11/17/2020 at 13:11 Approved by: Kyle Morris M.D. on 11/17/2020 at 13:11
[2020-11-17] MEDS: MIDAZOLAM 5 MG/5 ML VIAL IV (13:40)
[2020-11-17] MEDS: fentaNYL 100 MCG/2 ML INJ 50 MCG IV (13:40)
[2020-11-17] MEDS: BUPIVACAINE 0.25% (PF) VIAL 2 ML INJ (13:43)
[2020-11-17] MEDS: IOPAMIDOL 15 ML VIAL 3 ML INJ (13:43)
[2020-11-17] MEDS: BETAMETHASONE 30 MG/5 ML MDV 6 MG INJ (13:43)
[2020-11-17] MEDS: DEXAMETHASONE 10 MG/ML VIAL 20 MG INJ (13:44)
--- NOTE | 2020-11-17 13:54 | P.PCN_ITS ---
Date/Time/Diagnoses Date of procedure: 11/17/20 Time of procedure: 13:54 Pre-procedure diagnosis: 1. FORAMINAL STENOSIS WITH LE SYMPTOMS Post-procedure diagnosis: same Procedure Notes Procedure: 1. FLUOROSCOPICALLY GUIDED CONTRAST CONTROLLED TRANSFORAMINAL EPIDURAL STEROID INJECTION - LEFT L4/5 Indications: New is referred by Dr. Benitez for treatment of Foraminal Stenosis with Left LE Symptoms Physician: Gunnar Belcher Total Fluoroscopy time (seconds): 5 Total sedation minutes: 9 Complications: none Procedure in detail & Post-procedure care: FINDINGS Foraminal Nerve Root Compression secondary to disc disease and facet hypertrophy DESCRIPTION OF PROCEDURE Following review of allergy and review of potential side effects and complications, including, but not necessarily limited to, infection, allergic reaction, local tissue breakdown, stroke, temporary or permanent nerve injury, paralysis, and possible , the patient indicated that the patient understood and agreed to proceed. An informed consent document was signed by the patient, witnessed by a nurse, and placed in the patient's chart. Additionally, other treatment options including medications, modalities, and physical therapy were reviewed with the patient. After review of previous anaesthesic history and IV conscious sedation the patient was deemed safe to proceed with today?s procedure with IV conscious sedation as ASA class II designation. Safety time-out was performed to confirm patient ID, procedure to be performed and site of procedure. IV sedation was accomplished with a combination of 3mg of Versed and 50mcg of Fentanyl administered by the RN after DO order, titrated to patient comfort during the course of the procedure while the patient remained responsive to all verbal commands In the prone position following sterile prep and drape of the lumbar region, the left L4/5 posterior neuroforamen was identified fluoroscopically. The skin was anesthetized via a 25-gauge 1.5-inch needle with 1% lidocaine solution. At this point, a 25-gauge 3.5-inch spinal needle was atraumatically introduced and advanced under fluoroscopic guidance through the posterior left L4/5 neuroforamen to approximately the anterior aspect of the canal. Depth was confirmed on lateral view. Following negative aspiration, injection of approximately 1.5 cc of Isovue 200 under live fluoroscopy in the AP view confirmed excellent flow along the nerve root, into the epidural space without vascular or intrathecal uptake observed Radiological data, including multiple fluoroscopic views of the lumbosacral spine, reveal a spinal needle at the left L4/5 posterior neuroforamen. Subsequent views show flow of contrast material flowing superiorly and inferiorly along the nerve root confirming epidural flow. Subsequently, a test dose of 1.5 cc of 1% lidocaine solution was administered and patient was observed for two minutes for signs or symptoms of complications, including abdominal pain, shortness of breath, bilateral upper or lower extremity weakness, nausea and vomiting, prior to steroid injection. At this point, a total of 3cc or 20mg of dexamethasone and 6mg of betamethasone was injected without incident. The procedure tolerated the procedure well without signs or symptoms of complications prior to transfer to the recovery area continued monitoring without incident. The patient was then transferred to the recovery area where they were observed for an appropriate time after the injection. The patient reported a VAS score of 7 prior to the procedure and a post- procedure VAS of 0. POST OP INSTRUCTIONS The patient was provided a Pain Log to continue to record their response to the target-specific procedure prior to follow-up visit with their referring physician. Additionally, specific post-injection care instructions and a contact number to our office were provided if concerns arise regarding possible complications associated with the procedure are suspected.
== END 2020-11-17 14:17 | disposition home or self-care (01) ==
LOC: RAD 12:54
PROVIDERS: PCP Family Medicine; Referring Provider Physical Medicine & Rehabilitation; Visit Provider Physical Medicine & Rehabilitation
DX: M48.061 Spinal stenosis, lumbar region without neurogenic claudication (principal); M51.16 Intervertebral disc disorders with radiculopathy, lumbar region
CPT/HCPCS: 64483; J0702; J1100; J2250; J3010

== ENCOUNTER → 2020-12-29 09:26 | Outpatient (CLI) | payer MEDICARE, OTHER, SELFPAY ==
[2020-12-29 15:59] LABS: COVID19 -Nasal RAPID Negative (Negative)
== END ==
PROVIDERS: PCP Family Medicine; Visit Provider Physical Medicine & Rehabilitation
DX: Z20.822 Contact with and (suspected) exposure to COVID-19 (principal)
CPT/HCPCS: 87635; C9803

== ENCOUNTER 2020-12-31 08:09 | Outpatient (CLI) | payer MEDICARE, OTHER, SELFPAY ==
[2020-12-31] VITALS (9 sets, daily range): BP systolic 105–128; BP diastolic 58–80; PULSE 62–81; RESP 8–20; TEMP 36.3; O2SAT 94–99
--- NOTE | 2020-12-31 08:13 | DI.RAD.S_ITS ---
PROCEDURE: PAIN L/SI FACET INJ/BLK 1STL INDICATIONS: SPONDYLOSIS COMPARISON: [facility], , PAIN L/S TRANSFORAMINAL INJECT, 11/17/2020, 13:43. FINDINGS: Fluoroscopic spot filming was performed to verify placement of spinal needles at the left L4, L5, and S1 level(s), as labeled on the films. Appropriate location(s) of the needle tip(s) was confirmed by injection of iodinated contrast. IMPRESSION: Intraprocedural examination within normal limits. Dictated by: Kyle Morris M.D. on 12/31/2020 at 9:50 Approved by: Kyle Morris M.D. on 12/31/2020 at 9:51
[2020-12-31] MEDS: fentaNYL 100 MCG/2 ML INJ 50 MCG IV (08:54)
[2020-12-31] MEDS: MIDAZOLAM 5 MG/5 ML VIAL IV (08:54)
[2020-12-31] MEDS: IOPAMIDOL 15 ML VIAL 3 ML INJ (09:03)
[2020-12-31] MEDS: BUPIVACAINE 0.5% (PF) VIAL 5 ML INJ (09:03)
--- NOTE | 2020-12-31 09:09 | PM.PROC.IR.1 ---
Date/Time/Diagnoses Date of procedure: 12/31/20 Time of procedure: 09:09 Pre-procedure diagnosis: 1. FACET ARTHROPATHY Post-procedure diagnosis: same Procedure Notes Procedure: 1. Right L4, L5 and S1 MB BLOCKS Indications: New is referred by Dr. Benitez for treatment of Right Axial LBP. Physician: Gunnar Belcher Total Fluoroscopy time (seconds): 5 Total sedation minutes: 12 Complications: none Procedure in detail & Post-procedure care: DESCRIPTION OF PROCEDURE Fluoroscopically guided, contrast-controlled right L4, L5 and S1 medial branch blocks with 0.5cc of 0.5% Marcaine. Following review of allergy and review of potential side effects and complications, including, but not necessarily limited to, infection, allergic reaction, local tissue breakdown, nerve injury, paralysis, stroke and possible , the patient indicated that the patient understood and agreed to proceed. An informed consent document was signed by the patient, witnessed by a nurse, and placed in the patient's chart. After review of previous anaesthesic history and IV conscious sedation the patient was deemed safe to proceed with today?s procedure with IV conscious sedation as ASA class II designation. Safety time-out was performed to confirm patient ID, procedure to be performed and site of procedure. IV sedation was accomplished with a combination of 2mg of Versed and 50mcg of Fentanyl was administered by the RN after DO order, titrated to patient comfort during the course of the procedure while the patient remained responsive to all verbal commands In the prone position, following sterile prep and drape of the lumbar region, the right L4, L5 and S1 anatomical location of the medial branch of the dorsal ramus was identified fluoroscopically. Subsequently an anesthetic skin wheal using 1% lidocaine solution was initiated at each of the anatomical spots. Subsequently then a 22-gauge 3.5-inch spinal needle was atraumatically introduced and advanced under fluoroscopic guidance at each of the corresponding sites at the right L4, L5 and S1 MB. After negative aspiration, 0.2 cc of Isovue 200 was injected, confirming placement without vascular or intrathecal uptake. Subsequently then 0.5 cc of 0.5% Marcaine solution was injected at each of the corresponding sites at the right L4, L5 and S1 medial branch locations. The patient tolerated the procedure well without signs or symptoms of complications. The procedure tolerated the procedure well without signs or symptoms of complications prior to transfer to the recovery area continued monitoring without incident. Post-procedure, the patient was monitored initiating provocative activities to measure the amount of relief from block of the facetogenic pain. The patient reported a VAS of 7 prior to the procedure and a post-procedure VAS of 1. It has been a pleasure to assist in the diagnostic and therapeutic care of your patient. POST OP INSTRUCTIONS The patient was provided with a Pain Log to complete over the next several hours and subsequent days prior to the patient's follow up with the ordering physician. If the patient has sonar subsystem equipment operator relief to the solution applied, then they may be a candidate for medial branch rhizotomy. The patient is aware, was provided, once again, with a Pain Log and will follow up with the referring physician for review and clinical correlation.
== END 2020-12-31 09:32 | disposition home or self-care (01) ==
LOC: RAD 08:13
PROVIDERS: PCP Family Medicine; Referring Provider Physical Medicine & Rehabilitation; Visit Provider Physical Medicine & Rehabilitation
DX: M47.817 Spondylosis without myelopathy or radiculopathy, lumbosacral region (principal); M47.816 Spondylosis without myelopathy or radiculopathy, lumbar region; M54.59 Other low back pain
CPT/HCPCS: 64493; 64494; 99152; J2250; J3010

== ENCOUNTER 2021-05-13 17:15 | Observation (INO) | payer MEDICARE, OTHER, SELFPAY ==
[2021-05-13] VITALS (22 sets, daily range): BP systolic 117–142; BP diastolic 71–83; PULSE 70–104; RESP 15–29; TEMP 36.6; O2SAT 94–99; BMI 27.4
--- NOTE | 2021-05-13 17:41 | DI.RAD.S_ITS ---
PROCEDURE: XR CHEST 1V INDICATIONS: chest pain TECHNIQUE: One view of the chest was acquired. COMPARISON: None. FINDINGS: Surgical changes and devices: Fusion hardware in visualized lower cervical spine is seen. Lungs and pleura: Lungs are clear. No pleural effusions or pneumothorax. Mediastinum: Mediastinal contours appear normal. Heart size is normal. Bones and chest wall: No suspicious bony lesions. Overlying soft tissues appear unremarkable. IMPRESSION: No acute cardiopulmonary pathology. Dictated by: Sp Mccullough M.D. on 05/13/2021 at 18:02 Approved by: Sp Mccullough M.D. on 05/13/2021 at 18:02
--- NOTE | 2021-05-13 17:43 | PC.NURSE ---
pt got light headed and dizzy, placed himself on the ground and was too weak to get up. called 911 to bring him to the ER.
[2021-05-13 18:23] LABS: Add Manual Diff / Slide Review NO; Basophils Absolute Auto 0 /uL (0-100); Basophils Percent Auto 0.5 % (0-2); Eosinophils Absolute Auto 100 /uL (0-450); Eosinophils Percent Auto 0.7 % (2-4); Hematocrit 41.1 % (41-53); Hemoglobin 14.3 g/dL (13.5-17.5); Lymphocytes Absolute Auto 1900 /uL (1100-4500); Mean Corpuscular HGB Conc 34.8 % (30-36); Mean Corpuscular Hemoglobin 32.9 PG (26-34); Mean Corpuscular Volume 94.4 fL (80-100); Monocytes Absolute Auto 800 /uL (0-900); Monocytes Percent Auto 8.6 % (3-14); Neutrophils Absolute Auto 6100 /uL (1500-7000); Neutrophils Percent Auto 69.2 % (50-75); Platelet Count 174 X10^3/uL (150-400); Red Blood Cell Count 4.35 X10^6/uL (4.5-5.9); Red Cell Distribution Width 12.8 % (11.6-14.8); White Blood Cell Count 8.9 X10^3/uL (4.5-11.0)
[2021-05-13 18:36] LABS: Alanine Aminotransferase 18 IU/L (<50); Albumin 4.2 g/dL (3.5-5.0); Albumin Globulin Ratio 1.4 (1.0-2.8); Alkaline Phosphatase 47 U/L (38-126); Aspartate Aminotransferase 38 IU/L (17-59); BUN Creatinine Ratio 14.6 (6-22); Bilirubin Total 0.5 mg/dL (0.2-1.3); Blood Urea Nitrogen 15 mg/dL (9-20); Carbon Dioxide 28 mmol/L (22-32); Chloride 97 mmol/L (98-107); Creatine Kinase 217 U/L (55-170); Estimated Glomerular Filt Rate > 60.0 mL/min (>60); Globulin 2.9 g/dL (1.7-4.1); Glucose 103 mg/dL (80-110); HEMOLYSIS < 15 (0-50); Lipase 82 U/L (23-300); Magnesium 1.9 mg/dL (1.6-2.3); Sodium 127 mmol/L (137-145); Total Protein 7.1 g/dL (6.3-8.2)
[2021-05-13 18:46] LABS: Troponin I < 0.012 ng/mL (0.01-0.034)
[2021-05-13] MEDS: NITROGLYCERIN OINT 1 INCH/GM OINT...G. 0.5 INCH TOP (18:50)
[2021-05-13 18:51] LABS: CKMB % Relative Index 0.8 % (1.5-5.0); Creatine Kinase MB 1.72 ng/mL (<2.37)
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
[2021-05-13 20:35] LABS: Troponin I < 0.012 ng/mL (0.01-0.034)
[2021-05-13] MEDS: HEPARIN DRIP 25,000 UNIT/500 ML IV.SOLN 18.507 UNIT IV (20:43)
[2021-05-13 20:44] LABS: PTT Partial Thromboplastin Tim 27 SECONDS (26.4-36.2)
[2021-05-13] MEDS: HEPARIN 5,000 UNIT/ML VIAL 4000 UNIT IV (20:44)
[2021-05-13 22:06] LABS: COVID19 -Nasal RAPID Negative (Negative)
--- NOTE | 2021-05-13 22:14 | PC.NURSE ---
2215: admit from ED: dx chest pain. on hep gtt. at 18.5 mL /hour last ptt was 27. patient is a/o, voices needs. independant w/ steady gait. accompanied by family. assisted to bed, tele applied. VS obtained, denies cp/discomfort. oriented to room/call light.
--- NOTE | 2021-05-13 23:08 | DI.ECHO.S_ITS ---
[place] +---------+ [facility] +---------+ : : [address] : : : : [id number] : : : : Phone: [phone]+ Echocardiogram Report + + :Name: TRIPP PARRA Study Date: 05/14/2021 Height: 66 in : :[facility] Reading[facility]: Weight: 170 lb : : Gender: Male BSA: 1.9 m2 : :: 1955 Age: 65 yrs BP: 135/79 mmHg: :Reason For Study: Chest pain : :Ordering Physician: SIM, : :PARIS Performed By: Trevor Heath : :Referring: PARIS MONTEMAYOR : + + Interpretation Summary Normal left ventricle size with ejection fraction 55-60%. No significant valvular abnormality. Procedure: A two-dimensional transthoracic echocardiogram with color flow and Doppler was performed. The study quality was technically adequate. There is no prior echocardiogram noted for this patient. The patient was in normal sinus rhythm during the exam. Left Ventricle: The left ventricle is normal in size and wall thickness. The ejection fraction is estimated to be 55-60%. There are no focal wall motion abnormalities. Right Ventricle: The right ventricle is normal in size and function. Atria: The left atrial size is normal. Borderline right atrial enlargement. The atrial septum is aneurysmal. There is no Doppler evidence for an interatrial shunt. Mitral Valve: The mitral valve leaflets appear borderline thickened, but open well. There is trace mitral regurgitation. Aortic Valve: The aortic valve is trileaflet. The aortic valve opens well. There is trace aortic regurgitation. Tricuspid Valve: The tricuspid valve is normal. There is trace tricuspid regurgitation. Pulmonary artery pressures cannot be estimated because of the lack of a measurable TR jet velocity but the IVC suggests a CVP of around 3 mmHg. Pulmonic Valve: The pulmonic valve is normal in structure and function. Great Vessels: The aortic root is normal size. The ascending aorta is normal in size. The aortic arch is normal in size. The IVC is of normal diameter and collapses greater than 50% with a sniff. This suggests a low right atrial pressure of 3 mm Hg. Pericardium/ Pleura There is no pericardial effusion. There is an anterior echo-free space consistent with a fat pad. There is no pleural effusion. MMode/2D Measurements & Calculations LVIDd: 4.3 cm LVOT diam: 2.1 cm LVIDs: 2.7 cm Ao root diam: 3.2 cm FS: 36.8 % asc Aorta Diam: 2.8 cm IVSd: 1.1 cm Ao Arch Diam (Prox Trans): 2.7 cm LVPWd: 0.90 cm LV bravo. diameter/BSA (cm/m^2): 2.3 LV sys. diameter/BSA (cm/m^2): 1.5 LA A2 area: 18.9 cm2 RA long axis: 5.6 cm LA A4 area: 12.5 cm2 RA area: 16.0 cm2 LA length (vol): 4.6 cm RA vol: 38.7 ml LA vol: 43.3 ml RA : 20.8 ml/m2 LA vol index: 23.2 ml/m2 TAPSE: 1.6 cm Doppler Measurements & Calculations Ao V2 max: 93.7 cm/sec LVOT Max Chiki: 61.8 cm/sec Ao V2 mean: 71.3 cm/sec LV V1 max P.5 mmHg Ao max P.5 mmHg LV V1 VTI: 13.8 cm Ao mean P.2 mmHg GERSON(I,D): 2.4 cm2 Ao V2 VTI: 19.5 cm GERSON(V,D): 2.3 cm2 sev ratio: 0.70 GERSON indexed to BSA (cm^2/m^2): 1.3 MV E max chiki: 36.6 cm/sec SV(LVOT): 47.4 ml MV A max chiki: 64.1 cm/sec MV E/A: 0.57 Med Peak E' Chiki: 6.1 cm/sec E/E' med: 6.0 Lat Peak E' Chiki: 7.8 cm/sec E/E' lat: 4.7 E/e' average: 5.4 MV dec time: 0.28 sec Electronically signed by: Rachana Neves on Reading Physician:05/14/2021 01:51 PM
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
[2021-05-13 23:42] LABS: Hemoglobin A1C% w Est Avg Glu 5.8 % (4.0-6.0)
--- NOTE | 2021-05-14 | DI.NM.S_ITS ---
PROCEDURE: NM ANUSHA PERF SPECT REST & STR Rest and exercise myocardial perfusion SPECT with gated imaging and ejection fraction RADIOPHARMACEUTICAL: 12.8 mCi Tc-99m sestamibi IV at rest and 25.2 mCi Tc-99m sestamibi IV at peak exercise. A [id number] was performed. INDICATIONS: Chest pain TECHNIQUE: Radiopharmaceutical was injected at peak stress test, and also at rest. SPECT images were obtained. SPECT myocardial perfusion images were displayed in short axis, horizontal long axis, and vertical long axis views. Gated images were reviewed using [employer] software. COMPARISON: None. CARDIAC STRESS: A standard Nathan treadmill exercise tolerance test was performed by the patient under the supervision of an attending staff. The patient exercised for 9 minutes and 0 seconds; 10.1 METS; functional aerobic impairment (MAURO) is -18%. Hemodynamic data: There is normal blood pressure and heart rate response to exercise stress. Patient achieved 102 of maximum predicted heart rate at peak exercise. Maximum blood pressure 172/102. Symptoms: Patient denied chest pain during exercise. EKG: No diagnostic EKG changes of ischemia; no ectopy. FINDINGS: Raw data: There is good myocardial labeling by radiotracer. No significant motion artifacts. Higy-ue-pzwdv ratio is 0.32 (normal is less than 0.38 for sestamibi tracer, and less than 0.50 for thallium tracer). Left ventricle function: Gated images demonstrate normal left ventricle wall thickening. No segmental wall motion abnormality. No transient ischemic dilation; TID is 0.89 (normal less than 1.3). The left ventricle resting end-diastolic volume is 77 mL. Left ventricle stress ejection fraction is 72%; normal values are above 45%. Myocardial perfusion: There is normal distribution of activity in the left and right ventricular myocardium. No fixed or reversible perfusion defects. IMPRESSION: 1. No evidence of exercise-induced ischemia or scar on SPECT images. 2. No ST segment changes, ectopy or arrhythmias on exercise ECG. 3. Good exercise capacity. 4. Normal blood pressure response to exercise. Dictated by: Zulema Saxena D.O. on 05/14/2021 at 14:32 Approved by: Zulema Saxena M.D. on 05/14/2021 at 14:37
[2021-05-14] MEDS: ALPRAZolam 0.5 MG TABLET PO (00:41)
[2021-05-14 02:46] LABS: Troponin I 0.015 ng/mL (0.01-0.034)
[2021-05-14 02:47] LABS: PTT Partial Thromboplastin Tim 84 SECONDS (26.4-36.2)
[2021-05-14 04:00] VITALS: BP 117/64; PULSE 79; RESP 18; TEMP 36.6; O2SAT 99
[2021-05-14 07:21] LABS: Add Manual Diff / Slide Review NO; Basophils Absolute Auto 0 /uL (0-100); Basophils Percent Auto 0.8 % (0-2); Eosinophils Absolute Auto 100 /uL (0-450); Eosinophils Percent Auto 1.3 % (2-4); Hematocrit 40.1 % (41-53); Lymphocytes Absolute Auto 2000 /uL (1100-4500); Lymphocytes Percent Auto 37.7 % (25-40); Mean Corpuscular Hemoglobin 32.9 PG (26-34); Monocytes Absolute Auto 600 /uL (0-900); Monocytes Percent Auto 12.1 % (3-14); Neutrophils Absolute Auto 2500 /uL (1500-7000); Neutrophils Percent Auto 48.1 % (50-75); Platelet Count 169 X10^3/uL (150-400); Red Blood Cell Count 4.26 X10^6/uL (4.5-5.9); Red Cell Distribution Width 12.7 % (11.6-14.8); White Blood Cell Count 5.2 X10^3/uL (4.5-11.0)
[2021-05-14 07:33] LABS: Alanine Aminotransferase 17 IU/L (<50); Albumin 3.9 g/dL (3.5-5.0); Albumin Globulin Ratio 1.4 (1.0-2.8); Alkaline Phosphatase 42 U/L (38-126); Aspartate Aminotransferase 32 IU/L (17-59); BUN Creatinine Ratio 11.5 (6-22); Bilirubin Total 0.7 mg/dL (0.2-1.3); Bilirubin Unconjugated 0.8 mg/dL (0.0-1.1); Blood Urea Nitrogen 11 mg/dL (9-20); Calcium 8.9 mg/dL (8.4-10.2); Carbon Dioxide 29 mmol/L (22-32); Chloride 97 mmol/L (98-107); Cholesterol 133 mg/dL (140-199); Estimated Glomerular Filt Rate > 60.0 mL/min (>60); Globulin 2.7 g/dL (1.7-4.1); Glucose 107 mg/dL (80-110); HDL Cholesterol 75 mg/dL (40-60); HEMOLYSIS < 15 (0-50); LDL Cholesterol Calculated 50 mg/dL (<100); Magnesium 1.9 mg/dL (1.6-2.3); Potassium 3.8 mmol/L (3.4-5.1); Sodium 130 mmol/L (137-145); Total Protein 6.6 g/dL (6.3-8.2); Triglycerides 42 mg/dL (35-150)
[2021-05-14 07:39] VITALS: O2SAT 95
[2021-05-14 07:40] VITALS: BP 132/80; PULSE 79; RESP 16; TEMP 36.1; O2SAT 97
[2021-05-14 07:43] LABS: Troponin I 0.018 ng/mL (0.01-0.034)
[2021-05-14 08:34] LABS: Thyroid Stimulating Hormone 2.09 uIU/mL (0.47-4.68)
[2021-05-14 09:24] LABS: PTT Partial Thromboplastin Tim 65 SECONDS (26.4-36.2)
[2021-05-14 09:35] VITALS: BP 107/86; BP 120/70; BP 128/77; PULSE 100; PULSE 71; PULSE 80
[2021-05-14] MEDS: AMLODIPINE 5 MG TABLET 2.5 MG PO (10:45)
[2021-05-14] MEDS: ASPIRIN EC 81 MG TABLET PO (10:46)
[2021-05-14] MEDS: TAMSULOSIN 0.4 MG CAPSULE 0.8 MG PO (10:51)
--- NOTE | 2021-05-14 11:19 | CM.DANOTE ---
DCP: Case received, EMR reviewed. Attempted several times to meet with patient, he was downstairs having a test, and now, an echo. Was able to obtain information regarding patient's history from EMR. DCP assessment completed with information currently available. Patient is a 65 year old male who admitted yesterday evening to the care of the hospitalist team. PCP: Dr. Benitez. Payer: confirmed: Medicare/ [employer] Patient came to the hospital via ambulance secondary to having a syncopal episode while washing and waxing his car. He had become dizzy, had crawled on the ground to call 911. He was noted to have decrease in BP, as well as chest pain. During team rounds, was discussed that patient has angina. He is here for stress test, as well as echo. Checked on patient, but he is having echo. According to history, patient resides in [place] with spouse, India Tilley. He is independent as is noted patient was washing his vehicle before coming to hospital. P: DCP to continue to follow. Patient should be able to go home when he is deemed medically stable. Micaela Merida RN/Employment Programs Analyst Discharge Planning/Care Management Advanced directive, confirm from FAMILY Start: 05/14/21 02:19 Freq: Q24H Status: Active Protocol: Document 05/14/21 02:19 BV (Rec: 05/14/21 02:38 BV [id number]) Advance Directive, confirm on record Time 22:15 Person contacted patient Copy received No Time 22:15 Person contacted Copy received No CM Discharge Assessment Start: 05/14/21 11:18 Freq: Status: Active Protocol: Document 05/14/21 11:18 (Rec: 05/14/21 11:19 [id number]) Discharge Planning Assessment Assigned [employer] Micaela Merida RN/Employment Programs Analyst Advance Directives? Yes Advance Directives on File No History Provided By Patient,Family Member,Medical Record Prior Living Arrangements House Household Members spouse Type of transporation used prior to Drives own vehicle admit Independent with ADL's Yes Is patient alert and oriented? Yes Caregiver for Another No Barriers to Discharge No Discharge Plan Home Transportation Arrangement Spouse Referrals Initiated None needed Whiteboard Updated in Patient Room with Yes name and ext. # of [employer] Review Status In Process Next Review Type Continued Stay Review
--- NOTE | 2021-05-14 12:28 | PC.NURSE ---
Addendum entered by Kane Jackson R.N. 05/14/21 16:59: Pt readied for d/c. IV d/c'd intact. Instructions given to Pt and . Pt escorted to car via w/c. Original Note: Pt offers no overt c/o pain, asking appropriate questions. Plan discuss for D.I. and Echo and Stress test today. Continues on Heparin Gtt with next PTT in the a.m. 05/15/2021.
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
== END 2021-05-14 16:10 | disposition home or self-care (01) ==
LOC: ED 18:12 → AC 21:47
PROVIDERS: Emergency Medicine; Admitting Provider Nurse Practitioner Family; Emergency Provider Emergency Medicine; PCP Family Medicine; Referring Provider Emergency Medicine; Visit Provider Nurse Practitioner Family
DX: R07.9 Chest pain, unspecified (principal); I10 Essential (primary) hypertension; E78.5 Hyperlipidemia, unspecified; G62.9 Polyneuropathy, unspecified; F41.9 Anxiety disorder, unspecified; Z20.822 Contact with and (suspected) exposure to COVID-19
CPT/HCPCS: 36415; 71045; 78452; 80048; 80053; 80061; 80076; 82550; 82553; 83036; 83690; 83735; 84443; 84484; 85025; 85730; 87635; 93005; 93010; 93017; 93306; 96374; 99284; C9803; G0378; A9502; J1644

== ENCOUNTER → 2021-09-14 09:29 | Outpatient (CLI) | payer MEDICARE, OTHER, SELFPAY ==
[2021-05-13 22:13] VITALS: BMI 27.4
[2021-09-14 12:41] LABS: Prostate Specific Antigen 0.814 ng/mL (0.10-4.00)
== END ==
PROVIDERS: PCP Family Medicine; Referring Provider Urology; Visit Provider Urology
DX: Z12.5 Encounter for screening for malignant neoplasm of prostate (principal); Z80.42 Family history of malignant neoplasm of prostate
CPT/HCPCS: 36415; 84153

== ENCOUNTER 2022-02-10 08:05 | Outpatient (CLI) | payer MEDICARE, OTHER, SELFPAY ==
[2021-05-13 22:13] VITALS: BMI 27.4
[2022-02-10] VITALS (8 sets, daily range): BP systolic 137–164; BP diastolic 82–98; PULSE 73–95; RESP 12–20; TEMP 36.1; O2SAT 97–100
--- NOTE | 2022-02-10 09:09 | DI.RAD.S_ITS ---
PROCEDURE: PAIN L/SI FACET INJ/BLK 1STL INDICATIONS: SPONDYLOSIS COMPARISON: [facility], , PAIN L/SI FACET INJ/BLK 1STL, 12/31/2020, 9:00. FINDINGS: Fluoroscopic spot filming was performed to verify placement of spinal needles on the left at the L4, L5, and S1 levels, as labeled on the films. Appropriate location of the needle tips was confirmed by injection of iodinated contrast. IMPRESSION: Intraprocedural examination demonstrating appropriate positions of the needles. Dictated by: Kyle Morris M.D. on 02/10/2022 at 10:35 Approved by: Kyle Morris M.D. on 02/10/2022 at 10:36
[2022-02-10] MEDS: MIDAZOLAM 2 MG/2 ML VIAL IV (09:20)
[2022-02-10] MEDS: IOPAMIDOL 15 ML VIAL 3 ML INJ (09:24)
[2022-02-10] MEDS: BUPIVACAINE 0.5% MDV 5 ML SUBCUT (09:25)
--- NOTE | 2022-02-10 09:32 | PM.PROC.IR.1 ---
Date/Time/Diagnoses Date of procedure: 02/10/22 Time of procedure: 09:32 Pre-procedure diagnosis: 1. FACET ARTHROPATHY Post-procedure diagnosis: same Procedure Notes Procedure: 1. Left L4, L5 and S1 MB BLOCKS LA Indications: New is referred by Dr. Benitez for treatment of Left Axial LBP. Physician: Gunnar Belcher Total Fluoroscopy time (seconds): 6 Total sedation minutes: 8 Complications: none Procedure in detail & Post-procedure care: DESCRIPTION OF PROCEDURE Fluoroscopically guided, contrast-controlled left L4, L5 and S1 medial branch blocks with 0.5cc of 0.5% Marcaine. Following review of allergy and review of potential side effects and complications, including, but not necessarily limited to, infection, allergic reaction, local tissue breakdown, nerve injury, paralysis, stroke and possible , the patient indicated that the patient understood and agreed to proceed. An informed consent document was signed by the patient, witnessed by a nurse, and placed in the patient's chart. After review of previous anaesthesic history and IV conscious sedation the patient was deemed safe to proceed with today?s procedure with IV conscious sedation as ASA class II designation. Safety time-out was performed to confirm patient ID, procedure to be performed and site of procedure. IV sedation was accomplished with a combination of 2mg of Versed was administered by the RN after DO order, titrated to patient comfort during the course of the procedure while the patient remained responsive to all verbal commands. In the prone position, following sterile prep and drape of the lumbar region, the left L4, L5 and S1 anatomical location of the medial branch of the dorsal ramus was identified fluoroscopically. Subsequently an anesthetic skin wheal using 1% lidocaine solution was initiated at each of the anatomical spots. Subsequently then a 22-gauge 3.5-inch spinal needle was atraumatically introduced and advanced under fluoroscopic guidance at each of the corresponding sites at the left L4, L5 and S1 MB. After negative aspiration, 0.2cc of Isovue 200 was injected, confirming placement without vascular or intrathecal uptake. Subsequently then 0.5cc of 0.5% Marcaine solution was injected at each of the corresponding sites at the left L4, L5 and S1 medial branch locations. The patient tolerated the procedure well without signs or symptoms of complications. The patient tolerated the procedure well without signs or symptoms of complications prior to transfer to the recovery area continued monitoring without incident. Post-procedure, the patient was monitored initiating provocative activities to measure the amount of relief from block of the facetogenic pain. The patient reported a VAS of 7 prior to the procedure and a post-procedure VAS of 1. It has been a pleasure to assist in the diagnostic and therapeutic care of your patient. POST OP INSTRUCTIONS The patient was provided with a Pain Log to complete over the next several hours and subsequent days prior to the patient's follow up with the ordering physician. If the patient has torpedo shooter relief to the solution applied, then they may be a candidate for medial branch rhizotomy. The patient is aware, was provided, once again, with a Pain Log and will follow up with the referring physician for review and clinical correlation.
== END 2022-02-10 09:51 | disposition home or self-care (01) ==
LOC: RAD 08:06
PROVIDERS: PCP Family Medicine; Referring Provider Physical Medicine & Rehabilitation; Visit Provider Physical Medicine & Rehabilitation
DX: M47.817 Spondylosis without myelopathy or radiculopathy, lumbosacral region (principal); M47.816 Spondylosis without myelopathy or radiculopathy, lumbar region
CPT/HCPCS: 64493; 64494; J2250

== ENCOUNTER → 2022-02-15 16:04 | Outpatient (CLI) | payer MEDICARE, OTHER, SELFPAY ==
[2021-05-13 22:13] VITALS: BMI 27.4
[2022-02-15 16:27] LABS: BUN Creatinine Ratio 13.8 (6-22); Blood Urea Nitrogen 13 mg/dL (9-20); Carbon Dioxide 30 mmol/L (22-32); Chloride 95 mmol/L (98-107); Estimated Glomerular Filt Rate > 60 mL/min (>60); Glucose 114 mg/dL (80-110); HEMOLYSIS < 15 (0-50); Sodium 134 mmol/L (137-145)
[2022-02-15 16:43] LABS: Hemoglobin A1C% w Est Avg Glu 5.9 % (4.0-6.0)
== END ==
PROVIDERS: PCP Family Medicine; Referring Provider Family Medicine; Visit Provider Family Medicine
DX: R73.01 Impaired fasting glucose (principal); I10 Essential (primary) hypertension
CPT/HCPCS: 36415; 80048; 83036

== ENCOUNTER → 2022-02-28 12:51 | Outpatient (CLI) | payer MEDICARE, OTHER, SELFPAY ==
[2021-05-13 22:13] VITALS: BMI 27.4
[2022-02-28 14:10] LABS: COVID19 -Nasal RAPID Negative (Negative)
== END ==
PROVIDERS: PCP Family Medicine; Referring Provider Internal Medicine; Visit Provider Internal Medicine
DX: Z20.822 Contact with and (suspected) exposure to COVID-19 (principal)
CPT/HCPCS: 87635; C9803

== ENCOUNTER → 2022-02-28 12:53 | Outpatient (CLI) | payer MEDICARE, OTHER, SELFPAY ==
[2021-05-13 22:13] VITALS: BMI 27.4
--- NOTE | 2022-03-23 07:59 | PM.PFT.1 ---
Pulmonary Function Test Referral & Results Date Patient Seen: 02/28/22 Requesting provider: Felecia Giraldo Results: The spirometry demonstrates an FVC of 3.76 L which is 98% of predicted. The FEV1 was measured at 2.77 L which is 98% of predicted. The FEV1/FVC ratio was 74 which is 99% of predicted. Following the administration of bronchodilator there was a 22% improvement in FEF 25-75%. Lung volumes show an SVC of 4.0 L which is 99% of predicted. The diffusing capacity was measured at 23.93 which is 88% of predicted. The maximum voluntary ventilation was normal Interpretation: This study demonstrates normal pulmonary function
== END ==
PROVIDERS: PCP Family Medicine; Referring Provider Family Medicine; Visit Provider Family Medicine
DX: R06.02 Shortness of breath (principal); Z87.891 Personal history of nicotine dependence; Z20.822 Contact with and (suspected) exposure to COVID-19; J98.8 Other specified respiratory disorders
CPT/HCPCS: 87635; 94060; 94726; 94729; C9803

== ENCOUNTER 2022-03-31 07:10 | Outpatient (CLI) | payer MEDICARE, OTHER, SELFPAY ==
[2022-03-02 11:30] VITALS: BMI 27.4
[2022-03-31] VITALS (11 sets, daily range): BP systolic 130–154; BP diastolic 83–101; PULSE 80–109; RESP 12–20; TEMP 36.2; O2SAT 93–97
--- NOTE | 2022-03-31 07:11 | DI.RAD.S_ITS ---
PROCEDURE: PAIN L/S MED/LAT N RFA BILAT INDICATIONS: SPONDYLOSIS COMPARISON: [facility], , PAIN L/S MED/LAT N RFA BILAT, 12/25/2018, 8:42. FINDINGS: Fluoroscopic spot filming was performed to verify placement of spinal needles at the bilateral L4, L5, and S1 level(s), as labeled on the films. Appropriate location(s) of the needle tip(s) was confirmed by injection of iodinated contrast. IMPRESSION: Fluoroscopic support for bilateral medial branch rhizotomy at L4, L5, and S1. Dictated by: Jason Guevara M.D. on 03/31/2022 at 9:18 Approved by: Jason Guevara M.D. on 03/31/2022 at 9:18
[2022-03-31] MEDS: MIDAZOLAM 2 MG/2 ML VIAL 3 MG IV (08:41)
[2022-03-31] MEDS: LIDOCAINE 1% (PF) 5 ML INJ (08:42)
[2022-03-31] MEDS: BUPIVACAINE 0.5% (PF) 30 ML VIAL 5 ML INJ (08:44)
--- NOTE | 2022-03-31 08:59 | P.PCN_ITS ---
Date/Time/Diagnoses Date of procedure: 03/31/22 Time of procedure: 08:59 Pre-procedure diagnosis: 1. RECALCITRANT FACET ARTHROPATHY Post-procedure diagnosis: same Procedure Notes Procedure: 1. BILATERAL L4 AND L5 MEDIAL BRANCH RADIOFREQUENCY NEUROTOMY AND S1 DORSAL RAMUS BRANCH RADIOFREQUENCY NEUROTOMY Indications: New is referred by Dr. Benitez for treatment of facet arthropathy. Physician: Gunnar Belcher Total Fluoroscopy time (seconds): 13 Total sedation minutes: 30 Complications: none Procedure in detail & Post-procedure care: DESCRIPTION OF PROCEDURE Bilateral L4 and L5 medial branch radiofrequency neurotomy and bilateral S1 dorsal ramus radiofrequency neurotomy under fluoroscopy with conscious sedation. The patient is well known to this clinic having undergone previous facet injections with good but temporary relief. The patient has experienced appropriate, concordant relief with previous facet and median branch blocks but the patient's pain has been recalcitrant to further conservative measures. Therefore, based upon the patient's relief and persistent symptoms, the patient is considered an appropriate candidate for facet rhizotomy. All of the patient's questions regarding the risks versus benefits of the procedure, including, but not limited to, bleeding, infection, temporary as well as lasting nerve injury, paralysis, stroke, and , as well treatment alternatives were answered to satisfaction. After obtaining informed consent, denial of pertinent drug allergies, as well as being made aware of the potential risks of bleeding, infection, spinal cord trauma, paralysis, temporary and permanent nerve damage, seizure, stroke, and possible , the patient was brought to the fluoroscopy suite and positioned prone on the fluoroscopy table. The lumbar region was prepped with Betadine and covered with a fenestrated drape in the usual sterile fashion. Appropriate monitors applied including pulse oximeter, pulse, and blood pressure for regular monitoring throughout the procedure. After review of previous anaesthesic history and IV conscious sedation the patient was deemed safe to proceed with today's procedure with IV conscious sedation as ASA class II designation. Safety time-out was performed to confirm patient ID, procedure to be performed and site of procedure. IV sedation was accomplished with a combination of 3mg of Versed administered by the RN after DO order, titrated to patient comfort during the course of the procedure while the patient remained responsive to all verbal commands. After local infiltration using 1% lidocaine, under fluoroscopic guidance, a 10- cm RF insulated needle with a 10-mm active tip was positioned parallel to the junction of the right sacral ala and the superior articulating process where the S1 dorsal ramus resides. Needle placement was confirmed with motor stimulation of .5v on the right which produced local stimulation without radicular component. The stimulation was then increased to 2v with, once again, only local multifidus stimulation without radicular component. The needle was then removed and the identical procedure was performed along the length of the right L5 medial branch with motor stimulation at .7v on the right. The identical procedure was once again performed along the length of the right L4 medial branch with motor stimulation of .5v on the right. The medial branches were then anesthetised with 0.5% Marcaine. This was then followed by two discreet lesions performed at 80 degrees Celsius for 90 seconds each. The identical procedure was repeated on the left. The patient tolerated the procedure well without signs or symptoms of complications prior to transfer to the recovery area continued monitoring without incident. The patient was then transferred to the recovery area where they were observed for an appropriate period of time after the injection. The patient reported a VAS score of 9 prior to the procedure and a post-procedure VAS of 0. POST OP INSTRUCTIONS The patient was provided a Pain Log to continue to record the patient's response to the target-specific procedure prior to the patient's follow-up visit with the referring physician. Additionally, specific post-injection care instructions and a contact number to our office were provided if concerns arise regarding possible complications associated with the procedure are suspected.
== END 2022-03-31 09:15 | disposition home or self-care (01) ==
LOC: RAD 07:11
PROVIDERS: PCP Family Medicine; Referring Provider Physical Medicine & Rehabilitation; Visit Provider Physical Medicine & Rehabilitation
DX: M47.816 Spondylosis without myelopathy or radiculopathy, lumbar region (principal); M47.817 Spondylosis without myelopathy or radiculopathy, lumbosacral region
CPT/HCPCS: 64635; 64636; 99152; 99153; J2250

== ENCOUNTER → 2022-04-29 08:33 | Outpatient (CLI) | payer MEDICARE, OTHER, SELFPAY ==
[2022-03-02 11:30] VITALS: BMI 27.4
[2022-04-29 09:17] LABS: Add Manual Diff / Slide Review NO; Basophils Absolute Auto 0 /uL (0-100); Basophils Percent Auto 0.7 % (0-2); Eosinophils Absolute Auto 100 /uL (0-450); Eosinophils Percent Auto 1.7 % (2-4); Hematocrit 42.9 % (41-53); Hemoglobin 15.1 g/dL (13.5-17.5); Hemoglobin A1C% w Est Avg Glu 5.8 % (4.0-6.0); Lymphocytes Absolute Auto 1500 /uL (1100-4500); Lymphocytes Percent Auto 34.3 % (25-40); Mean Corpuscular HGB Conc 35.2 % (30-36); Mean Corpuscular Hemoglobin 34.3 PG (26-34); Mean Corpuscular Volume 97.6 fL (80-100); Monocytes Absolute Auto 500 /uL (0-900); Neutrophils Absolute Auto 2300 /uL (1500-7000); Neutrophils Percent Auto 52.3 % (50-75); Platelet Count 147 X10^3/uL (150-400); Red Cell Distribution Width 12.6 % (11.6-14.8); White Blood Cell Count 4.4 X10^3/uL (4.5-11.0)
[2022-04-29 09:57] LABS: Alanine Aminotransferase 35 IU/L (<50); Albumin 3.9 g/dL (3.5-5.0); Albumin Globulin Ratio 1.3 (1.0-2.8); Alkaline Phosphatase 49 U/L (38-126); Aspartate Aminotransferase 33 IU/L (17-59); BUN Creatinine Ratio 11.2 (6-22); Bilirubin Total 0.7 mg/dL (0.2-1.3); Blood Urea Nitrogen 11 mg/dL (9-20); Calcium 9.1 mg/dL (8.4-10.2); Carbon Dioxide 31 mmol/L (22-32); Chloride 99 mmol/L (98-107); Cholesterol 121 mg/dL (140-199); Estimated Glomerular Filt Rate > 60 mL/min (>60); Globulin 3.1 g/dL (1.7-4.1); Glucose 99 mg/dL (80-110); HDL Cholesterol 70 mg/dL (40-60); HEMOLYSIS < 15 (0-50); LDL Cholesterol Calculated 44 mg/dL (<100); Potassium 4.4 mmol/L (3.4-5.1); Sodium 136 mmol/L (137-145); Triglycerides 36 mg/dL (35-150)
[2022-04-29 10:00] LABS: TSH w/ Reflex to FT4 1.47 uIU/mL (0.47-4.68)
[2022-04-29 10:23] LABS: Prostate Specific Antigen Scrn 0.834 ng/mL (0.1-4.0)
== END ==
PROVIDERS: PCP Family Medicine; Referring Provider Family Medicine; Visit Provider Family Medicine
DX: I10 Essential (primary) hypertension (principal); R73.03 Prediabetes; Z12.5 Encounter for screening for malignant neoplasm of prostate; J98.8 Other specified respiratory disorders; R53.83 Other fatigue
CPT/HCPCS: 36415; 80053; 80061; 83036; 84443; 85025; G0103

== ENCOUNTER → 2022-07-15 11:22 | Outpatient (CLI) | payer MEDICARE, OTHER, SELFPAY ==
[2022-06-14 15:26] VITALS: BMI 27.4
--- NOTE | 2022-07-15 11:24 | DI.RAD.S_ITS ---
PROCEDURE: XR CHEST 2V INDICATIONS: SOB TECHNIQUE: 2 views of the chest were acquired. COMPARISON: [facility], CR, XR CHEST 1V, 05/13/2021, 17:52. FINDINGS: Surgical changes and devices: Redemonstration of postoperative changes from prior anterior cervical discectomy and fusion of the lower cervical spine. No evidence for hardware complication. Lungs and pleura: Lungs are clear. No pleural effusions or pneumothorax. Mediastinum: Mediastinal contours are normal. Heart size is normal. Bones and chest wall: No suspicious bony abnormalities. Soft tissues appear unremarkable. Age related spondylitic changes of the imaged spine. IMPRESSION: Stable radiographic evaluation of the chest without acute cardiopulmonary abnormalities or focal airspace disease. Dictated by: Jason Guevara M.D. on 07/15/2022 at 13:35 Approved by: Jason Guevara M.D. on 07/15/2022 at 13:36
== END ==
PROVIDERS: PCP Family Medicine; Referring Provider Family Medicine; Visit Provider Family Medicine
DX: R06.02 Shortness of breath (principal); R53.83 Other fatigue
CPT/HCPCS: 71046; 93005

== ENCOUNTER → 2022-08-05 14:53 | Outpatient (CLI) | payer MEDICARE, OTHER, SELFPAY ==
[2022-06-14 15:26] VITALS: BMI 27.4
--- NOTE | 2022-08-11 08:15 | PM.PFT.1 ---
Pulmonary Function Test Referral & Results Date Patient Seen: 08/05/22 Results: This is a 6 minute walk test At rest patient's room air saturation was 95% with pulse of 111 At 1 minute patient was at 130 ft with room air saturation 96% pulse 116 At 2 minutes patient was at 300 ft room air saturation 95% pulse 118 At 3 minutes patient was at 440 ft room air saturation 95% pulse 121 At 4 minutes patient was at 590 ft room air saturation 94% pulse 118 At 5 minutes patient was at 730 ft room-air saturation at 95% pulse 118 At 6 minutes patient was at 870 ft room air saturation 94% pulse 113 3 minutes post exercise room air saturation 97% with pulse of 115
== END ==
PROVIDERS: PCP Family Medicine; Referring Provider Internal Medicine; Visit Provider Internal Medicine
DX: R06.09 Other forms of dyspnea (principal)
CPT/HCPCS: 94010; 94618

== ENCOUNTER → 2022-08-10 11:57 | Outpatient (CLI) | payer MEDICARE, OTHER, SELFPAY ==
[2022-06-14 15:26] VITALS: BMI 27.4
--- NOTE | 2022-08-10 11:59 | DI.CT.S_ITS ---
PROCEDURE: CT CHEST WO CON INDICATIONS: Other forms of dyspnea TECHNIQUE: Noncontrast 5 mm thick sections acquired from the pulmonary apices to the posterior costophrenic angles. 1 mm lung window, 5 mm thick coronal and sagittal and 7 mm axial MIP reformats were then acquired. For radiation dose reduction, the following was used: automated exposure control, adjustment of mA and/or kV according to patient size. COMPARISON: None. FINDINGS: Image quality: Excellent. Lungs and pleura: No acute air space opacities. No pleural effusions or pneumothorax. Central and peripheral airways are patent and normal in caliber. Mild regions of bronchial thickening with associated mucous impaction. Peripheral tree-in-bud nodules in the right lower lobe. Mediastinum: Heart size is normal. No pericardial effusion. No mediastinal adenopathy by size criteria. Thoracic aorta and central pulmonary arteries are normal in size. Esophagus is normal in caliber. No hiatal hernia. Bones and chest wall: No suspicious bony lesions. No vertebral body compression fractures. No axillary or supraclavicular adenopathy by size criteria. Thyroid gland is unremarkable . Abdomen: Hepatic steatosis. IMPRESSION: Suspect trace respiratory bronchitis/bronchiolitis, given mild bronchial thickening with regions of bronchial mucous impaction and tree-in-bud nodules in the right lower lobe. Dictated by: Clif De Santiago M.D. on 08/10/2022 at 14:28 Approved by: Clif De Santiago M.D. on 08/10/2022 at 14:30
== END ==
PROVIDERS: PCP Family Medicine; Referring Provider Internal Medicine; Visit Provider Internal Medicine
DX: R06.09 Other forms of dyspnea (principal)
CPT/HCPCS: 71250

== ENCOUNTER → 2022-12-12 14:07 | Outpatient (CLI) | payer MEDICARE, OTHER, SELFPAY ==
[2022-06-14 15:26] VITALS: BMI 27.4
--- NOTE | 2022-12-12 14:09 | DI.RAD.S_ITS ---
PROCEDURE: XR LUMBAR SPINE MIN 4V INDICATIONS: back pain TECHNIQUE: 5 views of the lumbar spine were acquired, including bilateral oblique views. COMPARISON: [facility], , XR LUMBAR SPINE MIN 4V, 09/04/2020, 10:43. FINDINGS: Bones: 5 nonrib-bearing vertebrae are present, with small rudimentary ribs at T12. There is normal bony alignment. No vertebral body compression fractures. No suspicious bony lesions. Mild multilevel disc space narrowing degenerative endplate changes. Multilevel facet hypertrophy is seen. Findings have progressed when compared to the radiographs from 09/04/2020. Chronic healed left inferior rib fracture is noted. Soft tissues: Overlying bowel gas pattern is normal. No suspicious soft tissue calcifications. Oblique images: No pars defects. IMPRESSION: 1. Moderate multilevel spondylosis, which appears to have mildly progressed when compared to the radiographs from 09/04/2020. 2. No acute osseous abnormality. If the symptoms persist, consider cross sectional imaging such as MRI or CT for further assessment. Approved by: Marcelo Odonnell M.D. on 12/12/2022 at 14:39
== END ==
PROVIDERS: PCP Family Medicine; Referring Provider Physical Medicine & Rehabilitation; Visit Provider Physical Medicine & Rehabilitation
DX: M47.817 Spondylosis without myelopathy or radiculopathy, lumbosacral region (principal); M51.26 Other intervertebral disc displacement, lumbar region; M48.02 Spinal stenosis, cervical region; G62.9 Polyneuropathy, unspecified
CPT/HCPCS: 72110; 99214

== ENCOUNTER 2022-12-27 13:13 | Outpatient (CLI) | payer MEDICARE, OTHER, SELFPAY ==
[2022-06-14 15:26] VITALS: BMI 27.4
[2022-12-27] VITALS (9 sets, daily range): BP systolic 134–150; BP diastolic 84–95; PULSE 82–95; RESP 10–20; TEMP 35.9; O2SAT 97–100
--- NOTE | 2022-12-27 13:14 | DI.RAD.S_ITS ---
PROCEDURE: PAIN L INTERLAMINAR/CAUDAL INJ INDICATIONS: SPONDYLOSIS COMPARISON: [facility], CR, XR LUMBAR SPINE MIN 4V, 12/12/2022, 14:11. FINDINGS: Fluoroscopic spot filming was performed to verify placement of a spinal needle at the L4-L5 level, as labeled on the films. Appropriate location of the needle tip was confirmed by injection of iodinated contrast. IMPRESSION: Intraprocedural examination within normal limits. Dictated by: Kyle Morris M.D. on 12/27/2022 at 16:01 Approved by: Kyle Morris M.D. on 12/27/2022 at 16:02
[2022-12-27] MEDS: MIDAZOLAM 2 MG/2 ML VIAL IV (14:17)
[2022-12-27] MEDS: BETAMETHASONE 30 MG/5 ML MDV 6 MG INJ (14:20)
[2022-12-27] MEDS: DEXAMETHASONE 10 MG/ML VIAL INJ (14:21)
[2022-12-27] MEDS: iopamidoL 15 ML VIAL 3 ML INJ (14:21)
[2022-12-27] MEDS: BUPIVACAINE 0.25% (PF) VIAL 2 ML INJ (14:21)
--- NOTE | 2022-12-27 14:30 | P.PCN_ITS ---
Date/Time/Diagnoses Date of procedure: 12/27/22 Time of procedure: 14:30 Pre-procedure diagnosis: 1. HNP WITH RADICULAR FEATURES, 2. MULTILEVEL CENTRAL STENOSIS, Post-procedure diagnosis: same Procedure Notes Procedure: 1. FLUOROSCOPICALLY GUIDED CONTRAST CONTROLLED INTERLAMINAR EPIDURAL STEROID INJECTION -L4/5 Indications: New is referred by Dr. Giraldo for treatment of Bilateral Foraminal Stenosis R>L LE symptoms. Physician: Gunnar Belcher Total Fluoroscopy time (seconds): 7 Total sedation minutes: 10 Complications: none Procedure in detail & Post-procedure care: FINDINGS Multilevel Central Spinal Stenosis with Nerve Root Compression DESCRIPTION OF PROCEDURE Fluoroscopically guided, contrast-controlled L4/5 translaminar epidural steroid injection. Following review of allergy and review of potential side effects and complications, including, but not necessarily limited to, infection, allergic reaction, local tissue breakdown, temporary as well as permanent nerve injury, paralysis, stroke and possible , the patient indicated that the patient understood and agreed to proceed. An informed consent document was signed by the patient, witnessed by a nurse, and placed in the patient's chart. Additionally, other treatment options including modalities, medications, and physical therapy were reviewed with the patient. After review of previous anaesthesic history and IV conscious sedation the patient was deemed safe to proceed with today?s procedure with IV conscious sedation as ASA class II designation. Safety time-out was performed to confirm patient ID, procedure to be performed and site of procedure. IV sedation was accomplished with a combination of 2mg of Versed was administered by the RN after DO order, titrated to patient comfort during the course of the procedure while the patient remained responsive to all verbal commands In the prone position, following sterile prep and drape of the lumbar region, the L4/5 translaminar space was identified fluoroscopically. The skin was anesthetized via a 25-gauge, 1.5inch needle with 1% lidocaine solution. At this point, a 22-gauge short bevel spinal needle was atraumatically introduced and a dvanced under fluoroscopic guidance into the region of the L4/5 translaminar space. Depth was confirmed on lateral view. Radiological data, including multiple fluoroscopic views of the lumbar spine, reveal a spinal needle at the L4/5 translaminar space. Lateral views then show placement of the needle in the epidural space. Subsequent views show contrast material flowing superiorly and inferiorly in the epidural space. No vascular or intrathecal uptake is observed. At this point, using loss of resistance technique with saline and air, the epidural space was entered. This was confirmed following negative aspiration with injection of approximately 1.5cc of Isovue 200, showing excellent epidural flow without vascular or intrathecal uptake. At this point, 1cc of 1% lidocaine solution combined with 2cc or 10mg of dexamethasone and 6mg betamethasone was injected without incident. The patient tolerated the procedure well without signs or symptoms of complications prior to transfer to the recovery area continued monitoring without incident. The patient was then transferred to the recovery area where they were observed for an appropriate period of time after the injection. The patient reported a VAS score of 6 prior to the procedure and a post- procedure VAS of 0. POST OP INSTRUCTIONS The patient was provided a Pain Log to continue to record their response to the target-specific procedure prior to follow-up visit with their referring physician. Additionally, specific post-injection care instructions and a contact number to our office were provided if concerns arise regarding possible complications associated with the procedure are suspected.
== END 2022-12-27 14:49 | disposition home or self-care (01) ==
LOC: RAD 13:14
PROVIDERS: PCP Family Medicine; Referring Provider Physical Medicine & Rehabilitation; Visit Provider Physical Medicine & Rehabilitation
DX: M51.16 Intervertebral disc disorders with radiculopathy, lumbar region (principal); M48.061 Spinal stenosis, lumbar region without neurogenic claudication
CPT/HCPCS: 62323; 99152; J0702; J1100; J2250; J3490

== ENCOUNTER → 2023-01-28 09:39 | Outpatient (CLI) | payer MEDICARE, OTHER, SELFPAY ==
[2022-06-14 15:26] VITALS: BMI 27.4
--- NOTE | 2023-01-28 09:40 | DI.MRI.S_ITS ---
PROCEDURE: MR LUMBAR SPINE WO CON INDICATIONS: lumbar stenosis TECHNIQUE: Noncontrast sagittal T1 spin echo and T2 fast echo, sagittal STIR, and T2 fast spin echo through the lumbar spine. In cases with scoliosis, additional coronal T2 fast spin echo may be performed. COMPARISON: [facility], MR, MR LUMBAR SPINE WO CON, 09/17/2020, 16:45. [facility], CR, XR LUMBAR SPINE MIN 4V, 12/12/2022, 14:11. FINDINGS: Image quality: Good Alignment: No spondylolisthesis. Marrow: Possible hemangioma again seen at L4. Multilevel disc desiccation. Cord: Cord terminates in normal position. Soft tissues: Unremarkable retroperitoneal structures, partially seen. Specific levels: T12-L1: No stenosis. L1-L2: Mild facet arthropathy. No stenosis. L2-L3: There is a small diffuse disc bulge. Jkpj-ye-pkvjzkkp facet arthropathy. Mild central narrowing. Mild bilateral neural foraminal narrowing. L3-L4: Jiwe-mu-spxiidok diffuse disc bulge with a moderate superimposed right paracentral protrusion. There is moderate narrowing of the right subarticular recess. Mild to moderate facet arthropathy. Mild overall central narrowing. Ioiz-ah-ofjqvqto bilateral neural foraminal narrowing. L4-L5: Mild central narrowing. Nrsk-cx-gaaowmbv diffuse disc bulge and central protrusion, with jufn-kx-qylrxgqq bilateral subarticular recess narrowing. Mild to moderate left and mild right neural foraminal narrowing. Annular fissure is present.. Pcvt-jk-jvukahge facet arthropathy. L5-S1: Bdgj-uy-tvntpsko facet arthropathy. IMPRESSION: Slightly progressed degenerative changes as described above compared to 2020, worst at L3-L4 and L4-L5. Dictated by: Solo Shelby M.D. on 01/30/2023 at 11:36 Approved by: Solo Shelby M.D. on 01/30/2023 at 11:42
== END ==
PROVIDERS: PCP Family Medicine; Referring Provider Physical Medicine & Rehabilitation; Visit Provider Physical Medicine & Rehabilitation
DX: M48.062 Spinal stenosis, lumbar region with neurogenic claudication (principal); M47.816 Spondylosis without myelopathy or radiculopathy, lumbar region; M47.817 Spondylosis without myelopathy or radiculopathy, lumbosacral region
CPT/HCPCS: 72148

== ENCOUNTER 2023-03-28 13:25 | Outpatient (CLI) | payer MEDICARE, OTHER, SELFPAY ==
[2022-06-14 15:26] VITALS: BMI 27.4
[2023-03-28] VITALS (8 sets, daily range): BP systolic 135–154; BP diastolic 83–101; PULSE 83–99; RESP 11–23; TEMP 36; O2SAT 93–100
--- NOTE | 2023-03-28 14:00 | DI.RAD.S_ITS ---
PROCEDURE: PAIN SI JOINT INJECTION DEVON INDICATIONS: SI JOINT DISFUNCTION COMPARISON: [facility], XA, PAIN SI JOINT INJECTION DEVON, 08/21/2018, 9:11. FINDINGS: Fluoroscopic spot filming was performed to verify placement of a spinal needle at the right SI joint. IMPRESSION: Fluoroscopic imaging provided during performance of a right SI joint injection. Dictated by: Howard Benson M.D. on 03/28/2023 at 18:34 Approved by: Howard Benson M.D. on 03/28/2023 at 18:35
[2023-03-28] MEDS: MIDAZOLAM 2 MG/2 ML VIAL IV (14:32)
[2023-03-28] MEDS: iopamidoL 15 ML VIAL 3 ML INJ (14:38)
[2023-03-28] MEDS: BETAMETHASONE 30 MG/5 ML MDV 12 MG INJ (14:38)
[2023-03-28] MEDS: BUPIVACAINE 0.5% (PF) 10 ML VIAL 2 ML INJ (14:38)
[2023-03-28] MEDS: LIDOCAINE 1% 20 ML INJ (14:39)
--- NOTE | 2023-03-28 14:56 | P.PCN_ITS ---
Date/Time/Diagnoses Date of procedure: 03/28/23 Time of procedure: 14:56 Pre-procedure diagnosis: Sacroiliac joint pain/DJD Post-procedure diagnosis: same Procedure Notes Procedure: Fluoroscopic guided contrast controlled bilateral sacroiliac joint injection Indications: New is referred by Dr. Giraldo for treatment of bilateral sacroiliac joint DJD Physician: Gunnar Belcher Total Fluoroscopy time (seconds): 18 Total sedation minutes: 15 Complications: none Procedure in detail & Post-procedure care: Description of procedure Fluoroscopic guided, contrast controlled bilateral sacroiliac joint injection Following review of allergies and review of potential side effects and complications, including, but not necessarily limited to, infection, allergic reaction, local tissue breakdown, temporary as well as permanent nerve injury, paralysis, stroke and possible , the patient indicated that they understood and agreed to proceed. An informed consent was signed by the patient, witnessed by a nurse, and placed in the patient's chart. Additionally, other treatment options including modalities, medications, and physical therapy were reviewed with the patient. After review of previous anaesthesic history and IV conscious sedation the patient was deemed safe to proceed with today?s procedure with IV conscious sedation as ASA class II designation. Safety time-out was performed to confirm patient ID, procedure to be performed and site of procedure. IV sedation was accomplished with a combination of 2mg Versed were administered by the RN after DO order, titrated to patient comfort during the course of the procedure while the patient remained responsive to all verbal commands In the prone position following sterile prep and drape of the pelvic region, the hyper lucency on in the inferior aspect of the sacroiliac joint was identified fluoroscopically the skin was anesthetized be a 25 gauge 1.5 inch needle with approximately 2cc of 1% lidocaine solution. At this point, a 22 gauge 3 in s gagandeep needle was atraumatically introduced and advanced under fluoroscopic guidance into the inferior aspect of the right sacroiliac joint. Following negative aspiration, approximately 0.3cc of Isovue-300 was injected confirming intra-articular placement without vascular uptake. Radiographic data, including multiple fluoroscopic views of the pelvis, reveals a spinal needle in the sacroiliac joint hyper lucent zone. Subsequent view show flow contrast tear superiorly and inferiorly within the joint capsule without vascular intrathecal uptake. At this point a total of 1cc of 0.5% Marcaine was combined with 1cc of 6mg of betamethasone was injected without incident. Attention was then refocused the left sacroiliac joint where the procedure was replicated. The procedure tolerated the procedure well without signs or symptoms of complications prior to transfer to the recovery area continued monitoring without incident. The patient was then transferred to the recovery area with a bur observed for an appropriate time after the injection. The patient reverted a vas score of 7 prior to the procedure and post-procedure vas of 1. Postop instructions The patient was provided with a pain like to continue to record the patient's response to the target specific procedure prior to the patient's follow-up visit with the referring physician. Additionally, specific post injection care instructions and a contact number to our office were provided if concerns arise regarding the possible complications associated with procedure are suspected.
--- NOTE | 2023-03-29 11:37 | PC.NURSE ---
Procedure follow up call: Spoke with James @ [phone]. No concerns or questions. Follow up appointment scheduled already. Encouraged to call clinic if concerns arise.
== END 2023-03-28 15:10 | disposition home or self-care (01) ==
PROVIDERS: PCP Family Medicine; Referring Provider Physical Medicine & Rehabilitation; Visit Provider Physical Medicine & Rehabilitation
DX: M53.3 Sacrococcygeal disorders, not elsewhere classified (principal); M46.1 Sacroiliitis, not elsewhere classified
CPT/HCPCS: 27096; 77002; 99152; J0702; J2250

== ENCOUNTER → 2023-05-11 10:19 | Outpatient (CLI) | payer MEDICARE, OTHER, SELFPAY ==
[2022-06-14 15:26] VITALS: BMI 27.4
[2023-05-11 11:29] LABS: Hemoglobin A1C% w Est Avg Glu 5.8 % (4.0-6.0)
[2023-05-11 11:35] LABS: Blood Urea Nitrogen 13 mg/dL (9-20); Calcium 8.8 mg/dL (8.4-10.2); Carbon Dioxide 28 mmol/L (22-32); Chloride 102 mmol/L (98-107); Estimated Glomerular Filt Rate > 60 mL/min (>60); Glucose 118 mg/dL (80-110); HEMOLYSIS < 15 (0-50); Potassium 3.9 mmol/L (3.4-5.1); Sodium 136 mmol/L (137-145)
== END ==
PROVIDERS: PCP Family Medicine; Referring Provider Family Medicine; Visit Provider Family Medicine
DX: R73.01 Impaired fasting glucose (principal); R73.03 Prediabetes; I10 Essential (primary) hypertension
CPT/HCPCS: 36415; 80048; 83036

== ENCOUNTER → 2023-07-12 08:20 | Outpatient (CLI) | payer MEDICARE, OTHER, SELFPAY ==
[2023-07-10 09:58] VITALS: BMI 27.4
[2023-07-12 09:09] LABS: Add Manual Diff / Slide Review NO; Basophils Absolute Auto 0 /uL (0-100); Basophils Percent Auto 0.6 % (0-2); Eosinophils Absolute Auto 100 /uL (0-450); Eosinophils Percent Auto 1.6 % (2-4); Hematocrit 39.6 % (41-53); Hemoglobin 13.8 g/dL (13.5-17.5); Lymphocytes Absolute Auto 1400 /uL (1100-4500); Lymphocytes Percent Auto 21.8 % (25-40); Mean Corpuscular HGB Conc 34.8 % (30-36); Mean Corpuscular Hemoglobin 34.3 PG (26-34); Mean Corpuscular Volume 98.6 fL (80-100); Monocytes Absolute Auto 800 /uL (0-900); Monocytes Percent Auto 12.6 % (3-14); Neutrophils Absolute Auto 4100 /uL (1500-7000); Neutrophils Percent Auto 63.4 % (50-75); Platelet Count 171 X10^3/uL (150-400); Red Blood Cell Count 4.02 X10^6/uL (4.5-5.9); Red Cell Distribution Width 12.7 % (11.6-14.8); White Blood Cell Count 6.5 X10^3/uL (4.5-11.0)
[2023-07-12 09:29] LABS: BUN Creatinine Ratio 10.9 (6-22); Blood Urea Nitrogen 15 mg/dL (9-20); Calcium 9.5 mg/dL (8.4-10.2); Carbon Dioxide 29 mmol/L (22-32); Chloride 104 mmol/L (98-107); Estimated Glomerular Filt Rate 55 mL/min (>60); Glucose 128 mg/dL (80-110); HEMOLYSIS < 15 (0-50); Potassium 4.4 mmol/L (3.4-5.1); Sodium 138 mmol/L (137-145)
== END ==
PROVIDERS: PCP Family Medicine; Referring Provider Internal Medicine Cardiovascular Disease; Visit Provider Internal Medicine Cardiovascular Disease
DX: R55 Syncope and collapse (principal)
CPT/HCPCS: 36415; 80048; 85025

== ENCOUNTER 2023-10-26 09:36 | Outpatient (CLI) | payer MEDICARE, OTHER, SELFPAY ==
[2023-07-10 09:58] VITALS: BMI 27.4
[2023-10-26] VITALS (9 sets, daily range): BP systolic 135–158; BP diastolic 68–85; PULSE 70–80; RESP 9–19; TEMP 35.7; O2SAT 97–100
--- NOTE | 2023-10-26 10:15 | DI.RAD.S_ITS ---
PROCEDURE: PAIN L INTERLAMINAR/CAUDAL INJ INDICATIONS: L4-5 translaminar TAMMY COMPARISON: [facility], , PAIN L INTERLAMINAR/CAUDAL INJ, 12/27/2022, 14:20. FINDINGS: Fluoroscopic spot filming was performed to verify placement of spinal needles at the L4-L5 level(s), as labeled on the films. Appropriate location(s) of the needle tip(s) was confirmed by injection of iodinated contrast. IMPRESSION: Intraoperative guidance provided. Dictated by: Momo Ledesma M.D. on 10/26/2023 at 18:20 Approved by: Momo Ledesma M.D. on 10/26/2023 at 18:20
[2023-10-26] MEDS: MIDAZOLAM 2 MG/2 ML VIAL IV (10:51)
[2023-10-26] MEDS: BUPIVACAINE 0.25% (PF) VIAL 2 ML INJ (10:57)
[2023-10-26] MEDS: DEXAMETHASONE 10 MG/ML VIAL INJ (10:57)
[2023-10-26] MEDS: BETAMETHASONE 30 MG/5 ML MDV 6 MG INJ (10:58)
[2023-10-26] MEDS: LIDOCAINE 1% 20 ML INJ (10:58)
[2023-10-26] MEDS: iopamidoL 15 ML VIAL 3 ML INJ (10:58)
--- NOTE | 2023-10-26 11:06 | P.PCN_ITS ---
Date/Time/Diagnoses Date of procedure: 10/26/23 Time of procedure: 11:06 Pre-procedure diagnosis: 1. HNP WITH RADICULAR FEATURES, 2. MULTILEVEL CENTRAL STENOSIS, Post-procedure diagnosis: same Procedure Notes Procedure: 1. FLUOROSCOPICALLY GUIDED CONTRAST CONTROLLED INTERLAMINAR EPIDURAL STEROID INJECTION -L4/5 Indications: James is referred by Dr. Giraldo for treatment of Bilateral Foraminal Stenosis R>L LE symptoms. Physician: Gunnar Belcher Total Fluoroscopy time (seconds): 8 Total sedation minutes: 12 Complications: none Procedure in detail & Post-procedure care: FINDINGS Multilevel Central Spinal Stenosis with Nerve Root Compression DESCRIPTION OF PROCEDURE Fluoroscopically guided, contrast-controlled L4/5 translaminar epidural steroid injection. Following review of allergy and review of potential side effects and complications, including, but not necessarily limited to, infection, allergic reaction, local tissue breakdown, temporary as well as permanent nerve injury, paralysis, stroke and possible , the patient indicated that the patient understood and agreed to proceed. An informed consent document was signed by the patient, witnessed by a nurse, and placed in the patient's chart. Additionally, other treatment options including modalities, medications, and physical therapy were reviewed with the patient. After review of previous anaesthesic history and IV conscious sedation the patient was deemed safe to proceed with today?s procedure with IV conscious sedation as ASA class II designation. Safety time-out was performed to confirm patient ID, procedure to be performed and site of procedure. IV sedation was accomplished with a combination of 2mg of Versed was administered by the RN after DO order, titrated to patient comfort during the course of the procedure while the patient remained responsive to all verbal commands In the prone position, following sterile prep and drape of the lumbar region, the L4/5 translaminar space was identified fluoroscopically. The skin was anesthetized via a 25-gauge, 1.5inch needle with 1% lidocaine solution. At this point, a 22-gauge short bevel spinal needle was atraumatically introduced and advanced under fluoroscopic guidance into the region of the L4/5 translaminar space. Depth was confirmed on lateral view. Radiological data, including multiple fluoroscopic views of the lumbar spine, reveal a spinal needle at the L4/5 translaminar space. Lateral views then show placement of the needle in the epidural space. Subsequent views show contrast material flowing superiorly and inferiorly in the epidural space. No vascular or intrathecal uptake is observed. At this point, using loss of resistance technique with saline and air, the epidural space was entered. This was confirmed following negative aspiration with injection of approximately 1.5cc of Isovue 200, showing excellent epidural flow without vascular or intrathecal uptake. At this point, 1cc of 1% lidocaine solution combined with 2cc or 10mg of dexamethasone and 6mg betamethasone was injected without incident. The patient tolerated the procedure well without signs or symptoms of complications prior to transfer to the recovery area continued monitoring without incident. The patient was then transferred to the recovery area where they were observed for an appropriate period of time after the injection. The patient reported a VAS score of 6 prior to the procedure and a post- procedure VAS of 0. POST OP INSTRUCTIONS The patient was provided a Pain Log to continue to record their response to the target-specific procedure prior to follow-up visit with their referring physician. Additionally, specific post-injection care instructions and a contact number to our office were provided if concerns arise regarding possible complications associated with the procedure are suspected.
== END 2023-10-26 11:25 | disposition home or self-care (01) ==
PROVIDERS: PCP Family Medicine; Referring Provider Physical Medicine & Rehabilitation; Visit Provider Physical Medicine & Rehabilitation
DX: M51.16 Intervertebral disc disorders with radiculopathy, lumbar region (principal); M48.061 Spinal stenosis, lumbar region without neurogenic claudication
CPT/HCPCS: 62323; 99152; J0702; J1100; J2250; J3490

== ENCOUNTER → 2024-04-13 15:39 | Outpatient (CLI) | payer MEDICARE, OTHER, SELFPAY ==
[2023-07-10 09:58] VITALS: BMI 27.4
--- NOTE | 2024-04-13 15:41 | DI.MRI.S_ITS ---
PROCEDURE: MR CERVICAL SPINE WO CON INDICATIONS: Cervical radiculopathy status post C5 through 7 fusion TECHNIQUE: Noncontrast sagittal T1 spin echo and T2 fast spin echo, sagittal STIR, foraminal oblique sagittal T2 fast spin echo, and axial gradient echo or T2 fast spin echo through the cervical spine. COMPARISON: None. FINDINGS: Image quality: Excellent. Alignment and Curvature: Normal craniocervical junction. Trace anterolisthesis C4-5 and C7-T1. Bone Marrow: Anterior fusion and disc hardware from C5 through C7. No suspicious osseous edema. Spinal Cord: Visualized spinal cord has normal size and signal. No cerebellar tonsillar herniation. Paraspinous Soft Tissues: No paravertebral masses. Prevertebral soft tissues are normal in thickness. Incidental note of fluid in the right mastoid cavity. C2-C3: Moderate right-sided facet arthropathy. Mild right foraminal stenosis. C3-C4: Hypertrophic ankylosis of the right facet. Mild right uncovertebral joint hypertrophy. Moderate right and mild left foraminal stenosis. C4-C5: Severe right and moderate left facet arthropathy. Minor bilateral uncovertebral joint hypertrophy, right worse than left. Severe right and left foraminal narrowing. C5-C6: Right-sided foraminal disc osteophyte. Mild left-sided osteophyte. Moderate to severe left, and severe right foraminal narrowing. C6-C7: Mild bilateral facet hypertrophy. Moderate to severe bilateral foraminal stenosis.. C7-T1: Moderate bilateral facet arthropathy. Mild right foraminal stenosis. IMPRESSION: Multilevel moderate to severe bilateral foraminal stenosis predominantly due to facet hypertrophy, worst the C4-5 level on the right. No significant central canal stenosis. Dictated by: Erica Herrera M.D. on 04/15/2024 at 14:23 Approved by: Erica Herrera M.D. on 04/15/2024 at 14:35
== END ==
PROVIDERS: PCP Family Medicine; Referring Provider Physical Medicine & Rehabilitation; Visit Provider Physical Medicine & Rehabilitation
DX: M48.9 Spondylopathy, unspecified (principal); Z98.1 Arthrodesis status; M48.02 Spinal stenosis, cervical region; M47.812 Spondylosis without myelopathy or radiculopathy, cervical region
CPT/HCPCS: 72141

== ENCOUNTER 2024-05-30 08:35 | Outpatient (CLI) | payer MEDICARE, OTHER, SELFPAY ==
[2023-07-10 09:58] VITALS: BMI 27.4
[2024-05-30] VITALS (9 sets, daily range): BP systolic 127–161; BP diastolic 78–94; PULSE 79–92; RESP 15–19; TEMP 35.8; O2SAT 97–100
[2024-05-30] MEDS: MIDAZOLAM 2 MG/2 ML VIAL IV (09:40)
[2024-05-30] MEDS: DEXAMETHASONE 10 MG/ML VIAL 20 MG INJ (09:44)
[2024-05-30] MEDS: iopamidoL 15 ML VIAL 3 ML INJ (09:44)
[2024-05-30] MEDS: BUPIVACAINE 0.25% (PF) VIAL 2 ML INJ (09:45)
--- NOTE | 2024-05-30 09:57 | P.PCN_ITS ---
Date/Time/Diagnoses Date of procedure: 05/30/24 Time of procedure: 09:57 Pre-procedure diagnosis: 1. CERVICAL STENOSIS, 2. CERVICAL HNP WITH UPPER EXTREMITY RADICULAR FEATURES Post-procedure diagnosis: same Procedure Notes Procedure: 1. FLUORSCOPICALLY GUIDED CONTRAST CONTROLLED INTERLAMINAR EPIDURAL STEROID INJECTION - C6/7 TL TAMMY Indications: New is referred by Dr. Giraldo for treatment of Cervical HNP with Upper Extremity Paresthesias. Physician: Gunnar Belcher Total Fluoroscopy time (seconds): 37 Total sedation minutes: 13 Complications: none Procedure in detail & Post-procedure care: FINDINGS Cervical Stenosis due to disc deterioration and nerve root irritation and nerve root irritation DESCRIPTION OF PROCEDURE Fluoroscopically guided, contrast-controlled C6/7 translaminar epidural steroid injection with conscious sedation. Following review of allergy and review of potential side effects and complications, including, but not necessarily limited to, infection, allergic reaction, local tissue breakdown, temporary as well as permanent nerve injury, stroke, paralysis, and possible , the patient indicated that patient understood and agreed to proceed. An informed consent document was signed by the patient, witnessed by a nurse, and placed in the patient's chart. Additionally, other treatment options including modalities, medications, and physical therapy were reviewed with the patient. After review of previous anaesthesic history and IV conscious sedation the patient was deemed safe to proceed with today?s procedure with IV conscious sedation as ASA class II designation. Safety time-out was performed to confirm patient ID, procedure to be performed and site of procedure. IV sedation was accomplished with a combination of 2mg of Versed administered by the RN after DO order, titrated to patient comfort during the course of the procedure while the patient remained responsive to all verbal commands. In the prone position, following sterile prep and drape of the cervical region, the C6/7 translaminar space was identified fluoroscopically. The skin was anesthetized via a 25-gauge 1.5-inch needle with 1% lidocaine solution. At this point, a 25-gauge, 2.5-inch short bevel spinal needle was atraumatically introduced and advanced under fluoroscopic guidance into epidural space at the C6/7 translaminar space. Depth was confirmed on lateral view. Radiological data, including multiple fluoroscopic views of the cervical spine, reveal a spinal needle at the C6/7 translaminar space. Lateral views then show placement of the needle in the epidural space. Subsequent views show contrast material flowing superiorly and inferiorly in the epidural space. DSA fluoroscopy with live contrast injection, once again, confirmed no vascular or intrathecal uptake. At this point, using loss of resistance technique with saline and air, the epidural space was entered. Following negative aspiration, injection of approximately 1.5 cc of Isovue-200 with live fluoroscopy in the AP view confirmed epidural flow in the epidural space without vascular or intrathecal uptake observed. Subsequently, a test dose of 1 cc of 1% lidocaine solution was injected and patient was observed for two minutes without signs or symptoms of complications, including abdominal pain, shortness of breath, bilateral upper or lower extremity weakness, nausea and vomiting, prior to steroid injection. At this point, 2cc or 20mg of dexamethasone was then injected without incident. The patient tolerated the procedure well without signs or symptoms of compli cations prior to being transferred to the recovery area for further monitoring, The patient was then transferred to the recovery area where they were observed for an appropriate period of time after the injection. The patient reported a VAS score of 6 prior to the procedure and a post-procedure VAS of 0. POST OP INSTRUCTIONS The patient was provided a Pain Log to continue to record their response to the target-specific procedure prior to follow-up visit with the referring provider. Additionally, specific post-injection care instructions and a contact number to our office were provided if concerns arise regarding possible complications associated with the procedure are suspected.
== END 2024-05-30 10:25 | disposition home or self-care (01) ==
LOC: RAD 08:36
PROVIDERS: PCP Family Medicine; Referring Provider Physical Medicine & Rehabilitation; Visit Provider Physical Medicine & Rehabilitation
DX: M48.02 Spinal stenosis, cervical region (principal); M50.123 Cervical disc disorder at C6-C7 level with radiculopathy
CPT/HCPCS: 62321; 99152; J1100; J2250; J3490

== ENCOUNTER 2024-09-10 08:33 | Outpatient (CLI) | payer MEDICARE, OTHER, SELFPAY ==
[2023-07-10 09:58] VITALS: BMI 27.4
[2024-09-10] VITALS (8 sets, daily range): BP systolic 132–152; BP diastolic 78–86; PULSE 62–89; RESP 12–16; TEMP 36.1; O2SAT 96–100
[2024-09-10] MEDS: MIDAZOLAM 2 MG/2 ML VIAL IV (09:43)
[2024-09-10] MEDS: BUPIVACAINE 0.25% (PF) VIAL 2 ML INJ (09:48)
[2024-09-10] MEDS: DEXAMETHASONE 10 MG/ML VIAL 30 MG INJ (09:48)
[2024-09-10] MEDS: iopamidoL 15 ML VIAL 3 ML INJ (09:49)
--- NOTE | 2024-09-10 10:01 | P.PCN_ITS ---
Date/Time/Diagnoses Date of procedure: 09/10/24 Time of procedure: 10:01 Pre-procedure diagnosis: 1. CERVICAL STENOSIS, 2. CERVICAL HNP WITH UPPER EXTREMITY RADICULAR FEATURES Procedure Notes Procedure: FLUORSCOPICALLY GUIDED CONTRAST CONTROLLED INTERLAMINAR EPIDURAL STEROID INJECTION - C7/T1 TL TAMMY Indications: New is referred by Dr. Giraldo for treatment of Cervical Stenosis. Physician: Gunnar Belcher Total Fluoroscopy time (seconds): 24 Total sedation minutes: 14 Complications: none Procedure in detail & Post-procedure care: DESCRIPTION OF PROCEDURE Following review of allergy and review of potential side effects and co mplications, including, but not necessarily limited to, infection, allergic reaction, local tissue breakdown, temporary as well as permanent nerve injury, stroke, paralysis, and possible , the patient indicated that patient understood and agreed to proceed. An informed consent document was signed by the patient, witnessed by a nurse, and placed in the patient's chart. Additionally, other treatment options including modalities, medications, and physical therapy were reviewed with the patient. After review of previous anaesthesic history and IV conscious sedation the patient was deemed safe to proceed with todays procedure with IV conscious sedation as ASA class II designation. Safety time-out was performed to confirm patient ID, procedure to be performed and site of procedure. IV sedation was accomplished with a combination of 2mg of Versed administered by the RN after DO order, titrated to patient comfort during the course of the procedure while the patient remained responsive to all verbal commands. In the prone position, following sterile prep and drape of the cervical region, the C7/T1 translaminar space was identified fluoroscopically. The skin was anesthetized via a 25-gauge 1.5-inch needle with 1% lidocaine solution. At this point, a 25-gauge, 2.5-inch short bevel spinal needle was atraumatically introduced and advanced under fluoroscopic guidance into epidural space at the C7/T1 translaminar space. Depth was confirmed on lateral view. Radiological data, including multiple fluoroscopic views of the cervical spine, reveal a spinal needle at the C7/T1 translaminar space. Lateral views then show placement of the needle in the epidural space. Subsequent views show contrast material flowing superiorly and inferiorly in the epidural space. DSA fluorosco py with live contrast injection, once again, confirmed no vascular or intrathecal uptake. At this point, using loss of resistance technique with saline and air, the epidural space was entered. Following negative aspiration, injection of approximately 1.5 cc of Isovue-200 with live fluoroscopy in the AP view confirmed epidural flow in the epidural space without vascular or intrathecal uptake observed. Subsequently, a test dose of 1 cc of 1% lidocaine solution was injected and patient was observed for two minutes without signs or symptoms of complications, including abdominal pain, shortness of breath, bilateral upper or lower extremity weakness, nausea and vomiting, prior to steroid injection. At this point, 3cc or 30mg of dexamethasone was then injected without incident. The patient tolerated the procedure well without signs or symptoms of complications prior to transfer to the recovery area for further monitoring The patient was then transferred to the recovery area where they were observed for an appropriate period of time after the injection. The patient reported a VAS score of 6 prior to the procedure and a post-procedure VAS of 0 POST OP INSTRUCTIONS The patient was provided a Pain Log to continue to record the patient's response to the target-specific procedure prior to the patient's follow-up visit with the referring physician. Additionally, specific post-injection care instructions and a contact number to our office were provided if concerns arise regarding possible complications associated with the procedure are suspected.
== END 2024-09-10 10:19 | disposition home or self-care (01) ==
LOC: RAD 08:35
PROVIDERS: PCP Family Medicine; Referring Provider Physical Medicine & Rehabilitation; Visit Provider Physical Medicine & Rehabilitation
DX: M48.02 Spinal stenosis, cervical region (principal); M50.13 Cervical disc disorder with radiculopathy, cervicothoracic region
CPT/HCPCS: 62321; 99152; J1100; J2250

== ENCOUNTER 2024-09-13 05:00 | Emergency (ER) | payer MEDICARE, OTHER, SELFPAY ==
[2023-07-10 09:58] VITALS: BMI 27.4
[2024-09-13] VITALS (9 sets, daily range): BP systolic 114–141; BP diastolic 65–78; PULSE 61–69; RESP 15–19; TEMP 36.3; O2SAT 94–99; BMI 27.4
--- NOTE | 2024-09-13 04:58 | DI.RAD.S_ITS ---
PROCEDURE: XR CHEST 1V INDICATIONS: syncope TECHNIQUE: One view of the chest was acquired. COMPARISON: [facility], CR, XR CHEST 2V, 07/15/2022, 11:20. FINDINGS: Surgical changes and devices: Wireless cardiac device. Cervical spine fusion hardware. Lungs and pleura: Lungs are clear. No pleural effusions or pneumothorax. Mediastinum: Mediastinal contours appear normal. Heart size is normal. Bones and chest wall: No suspicious bony lesions. Overlying soft tissues appear unremarkable. IMPRESSION: No acute cardiopulmonary abnormality is seen. Dictated by: Erica Herrera M.D. on 09/13/2024 at 9:30 Approved by: Erica Herrera M.D. on 09/13/2024 at 9:31
--- NOTE | 2024-09-13 04:59 | DI.CT.S_ITS ---
PROCEDURE: CT HEAD/BRAIN WO CON INDICATIONS: syncope / fall TECHNIQUE: Noncontrast 4.5 mm thick angled axial sections acquired from the foramen magnum to the vertex, with coronal and sagittal reformats. For radiation dose reduction, the following was used: automated exposure control, adjustment of mA and/or kV according to patient size. COMPARISON: [facility], CT, CT HEAD WITHOUT CONTRAST, 03/01/2024, 21:37. FINDINGS: Image quality: Diagnostic. CSF spaces: Basal cisterns are patent. No extra-axial fluid collections. The ventricles are symmetric in size and shape. Brain: No intracranial bleeds or mass effect. There is cerebral volume loss, with resultant ventricular and sulcal prominence. There are periventricular and deep white matter chronic small vessel ischemic changes. There is intracranial internal carotid artery atherosclerosis. Skull and face: Calvarium and visualized facial bones appear intact, without suspicious lesions. Sinuses: Visualized sinuses and mastoids are clear. IMPRESSION: No acute intracranial pathology. Findings are concordant with preliminary interpretation provided by [facility]. Dictated by: Amaury Mello M.D. on 09/13/2024 at 8:18 Approved by: Amaury Mello M.D. on 09/13/2024 at 8:19
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
--- NOTE | 2024-09-13 05:01 | EKG_ITS ---
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 : 1955 Requested By: Order Number: [id number] Reading MD: Kevin Nicholson MD Measurements Intervals Sandy Rate: 62 P: 35 RI: 230 QRS: -11 QRSD: 90 T: 28 QT: 422 QTc: 428 Interpretive Statements Sinus rhythm with 1st degree AV block Minimal voltage criteria for LVH, may be normal variant ( R in aVL ) Electronically Signed On 09-13-2024 11:08:25 PDT by Kevin Nicholson MD
[2024-09-13 05:17] LABS: Add Manual Diff / Slide Review NO; Basophils Absolute Auto 0 /uL (0-100); Basophils Percent Auto 0.7 % (0-2); Eosinophils Absolute Auto 0 /uL (0-450); Eosinophils Percent Auto 0.6 % (2-4); Hematocrit 40.3 % (41-53); Hemoglobin 13.9 g/dL (13.5-17.5); Lymphocytes Absolute Auto 2300 /uL (1100-4500); Lymphocytes Percent Auto 40.1 % (25-40); Mean Corpuscular HGB Conc 34.5 % (30-36); Mean Corpuscular Hemoglobin 34.6 PG (26-34); Mean Corpuscular Volume 100.3 fL (80-100); Monocytes Absolute Auto 700 /uL (0-900); Monocytes Percent Auto 11.4 % (3-14); Neutrophils Absolute Auto 2700 /uL (1500-7000); Neutrophils Percent Auto 47.2 % (50-75); Platelet Count 156 X10^3/uL (150-400); Red Blood Cell Count 4.02 X10^6/uL (4.5-5.9); Red Cell Distribution Width 12.9 % (11.6-14.8); White Blood Cell Count 5.8 X10^3/uL (4.5-11.0)
[2024-09-13 05:21] LABS: INR 0.9 (0.9-1.3); Prothrombin Time 10.2 SECONDS (9.4-12.5)
[2024-09-13 05:24] LABS: PTT Partial Thromboplastin Tim 27 SECONDS (25.1-36.5)
[2024-09-13 05:25] LABS: Alanine Aminotransferase 19 IU/L (<50); Albumin 4.2 g/dL (3.5-5.0); Albumin Globulin Ratio 1.6 (1.0-2.8); Alkaline Phosphatase 51 U/L (38-126); Aspartate Aminotransferase 36 IU/L (17-59); Bilirubin Total 0.4 mg/dL (0.2-1.3); Blood Urea Nitrogen 18 mg/dL (9-20); Calcium 8.7 mg/dL (8.4-10.2); Carbon Dioxide 23 mmol/L (22-32); Chloride 97 mmol/L (98-107); Creatine Kinase 97 U/L (55-170); Estimated Glomerular Filt Rate > 60 mL/min (>60); Globulin 2.6 g/dL (1.7-4.1); Glucose 93 mg/dL (70-99); HEMOLYSIS < 15 (0-50); Lipase 205 U/L (23-300); Potassium 3.7 mmol/L (3.4-5.1); Sodium 128 mmol/L (137-145); Total Protein 6.8 g/dL (6.3-8.2)
[2024-09-13 05:37] LABS: NT-proBNP (BNP-Adult 18+) 41 pg/mL (<125); Troponin I < 0.012 ng/mL (0.01-0.034)
[2024-09-13 07:17] LABS: Troponin I < 0.012 ng/mL (0.01-0.034)
== END 2024-09-13 07:46 | disposition home or self-care (01) ==
PROVIDERS: Emergency Provider Student in an Organized Health Care Education/Training Program; PCP Family Medicine
DX: R55 Syncope and collapse (principal); I10 Essential (primary) hypertension; F17.200 Nicotine dependence, unspecified, uncomplicated; W18.2XXA Fall in (into) shower or empty bathtub, initial encounter; Z86.79 Personal history of other diseases of the circulatory system
CPT/HCPCS: 36415; 70450; 71045; 80053; 82550; 83690; 83735; 83880; 84484; 85025; 85610; 85730; 93005; 93010; 99284

== ENCOUNTER → 2024-11-01 10:10 | Outpatient (CLI) | payer MEDICARE, OTHER, SELFPAY ==
[2023-07-10 09:58] VITALS: BMI 27.4
[2024-11-01 11:07] LABS: Blood Urea Nitrogen 12 mg/dL (9-20); Calcium 9.6 mg/dL (8.4-10.2); Carbon Dioxide 30 mmol/L (22-32); Chloride 99 mmol/L (98-107); Estimated Glomerular Filt Rate > 60 mL/min (>60); Glucose 58 mg/dL (70-99); HEMOLYSIS < 15 (0-50); Potassium 4.3 mmol/L (3.4-5.1); Sodium 135 mmol/L (137-145)
== END ==
PROVIDERS: PCP Family Medicine; Referring Provider Family Medicine; Visit Provider Family Medicine
DX: E87.1 Hypo-osmolality and hyponatremia (principal); I10 Essential (primary) hypertension; I95.1 Orthostatic hypotension; G62.9 Polyneuropathy, unspecified
CPT/HCPCS: 36415; 80048

== ENCOUNTER → 2024-12-19 09:24 | Outpatient (CLI) | payer MEDICARE, OTHER, SELFPAY ==
[2023-07-10 09:58] VITALS: BMI 27.4
== END ==
PROVIDERS: Urology; PCP Family Medicine; Referring Provider Family Medicine; Visit Provider Family Medicine
DX: Z12.5 Encounter for screening for malignant neoplasm of prostate (principal)
CPT/HCPCS: 36415; G0103

== ENCOUNTER → 2025-02-27 07:59 | Outpatient (CLI) | payer MEDICARE, OTHER, SELFPAY ==
[2023-07-10 09:58] VITALS: BMI 27.4
== END ==
LOC: PHYS 08:01
PROVIDERS: PCP Family Medicine; Referring Provider Physical Medicine & Rehabilitation; Visit Provider Physical Medicine & Rehabilitation
DX: G56.03 Carpal tunnel syndrome, bilateral upper limbs (principal)
CPT/HCPCS: 95886; 95912

== ENCOUNTER 2025-02-27 13:00 | Outpatient (CLI) | payer MEDICARE, OTHER, SELFPAY ==
[2023-07-10 09:58] VITALS: BMI 27.4
[2025-02-27 14:21] VITALS: BP 158/94; PULSE 90; RESP 16; TEMP 36.4; O2SAT 97
[2025-02-27 14:50] VITALS: BP 132/93; PULSE 76; RESP 20; O2SAT 99
[2025-02-27] MEDS: MIDAZOLAM 2 MG/2 ML VIAL IV (14:54)
[2025-02-27 14:55] VITALS: BP 145/86; PULSE 77; RESP 16; O2SAT 100
[2025-02-27] MEDS: BETAMETHASONE 30 MG/5 ML MDV 12 MG INJ (14:59)
[2025-02-27 15:00] VITALS: BP 141/86; PULSE 75; RESP 16; O2SAT 99
[2025-02-27] MEDS: BETAMETHASONE 30 MG/5 ML MDV 6 MG INJ (15:01)
--- NOTE | 2025-02-27 15:06 | P.PCN_ITS ---
Date/Time/Diagnoses Date of procedure: 02/27/25 Time of procedure: 15:06 Pre-procedure diagnosis: 1. HNP WITH RADICULAR FEATURES, 2. MULTILEVEL CENTRAL STENOSIS, Post-procedure diagnosis: same Procedure Notes Procedure: 1. FLUOROSCOPICALLY GUIDED CONTRAST CONTROLLED INTERLAMINAR EPIDURAL STEROID INJECTION - L3/4 Indications: New is referred by Dr. Giraldo for treatment of Bilateral Foraminal Stenosis L>R LE symptoms. Physician: Gunnar Belcher Total Fluoroscopy time (seconds): 6 Total sedation minutes: 10 Complications: none Procedure in detail & Post-procedure care: FINDINGS Multilevel Central Spinal Stenosis with Nerve Root Compression DESCRIPTION OF PROCEDURE Fluoroscopically guided, contrast-controlled L3/4 translaminar epidural steroid injection. Following review of allergy and review of potential side effects and complications, including, but not necessarily limited to, infection, allergic reaction, local tissue breakdown, temporary as well as permanent nerve injury, paralysis, stroke and possible , the patient indicated that the patient understood and agreed to proceed. An informed consent document was signed by the patient, witnessed by a nurse, and placed in the patient's chart. Additionally, other treatment options including modalities, medications, and physical therapy were reviewed with the patient. After review of previous anaesthesic history and IV conscious sedation the patient was deemed safe to proceed with today?s procedure with IV conscious sedation as ASA class II designation. Safety time-out was performed to confirm patient ID, procedure to be performed and site of procedure. IV sedation was accomplished with a combination of 2mg of Versed was administered by the RN after DO order, titrated to patient comfort during the course of the procedure while the patient remained responsive to all verbal commands. In the prone position, following sterile prep and drape of the lumbar region, the L3/4 translaminar space was identified fluoroscopically. The skin was anesthetized via a 25-gauge, 1.5-inch needle with 1% lidocaine solution. At this point, a 22-gauge short bevel spinal needle was atraumatically introduced and advanced under fluoroscopic guidance into the region of the L3/4 translaminar space. Depth was confirmed on lateral view. Radiological data, including multiple fluoroscopic views of the lumbar spine, reveal a spinal needle at the L3/4 translaminar space. Lateral views then show placement of the needle in the epidural space. Subsequent views show contrast material flowing superiorly and inferiorly in the epidural space. No vascular or intrathecal uptake is observed. At this point, using loss of resistance technique with saline and air, the epidural space was entered. This was confirmed following negative aspiration with injection of approximately 1.5 cc of Isovue 200, showing excellent epidural flow without vascular or intrathecal uptake. At this point, 1cc of 0.25% nelson ine solution combined with 4cc or 10mg of dexamethasone and 18mg of betamethasone was injected without incident. The patient tolerated the procedure well without signs or symptoms of complications prior to transfer to the recovery area continued monitoring without incident. The patient was then transferred to the recovery area where they were observed for an appropriate period of time after the injection. The patient reported a VAS score of 9 prior to the procedure and a post- procedure VAS of 2. POST OP INSTRUCTIONS The patient was provided a Pain Log to continue to record their response to the target-specific procedure prior to follow-up visit with their referring physician. Additionally, specific post-injection care instructions and a contact number to our office were provided if concerns arise regarding possible complications associated with the procedure are suspected.
[2025-02-27 15:15] VITALS: BP 147/93; PULSE 90; RESP 12; O2SAT 99
[2025-02-27 15:20] VITALS: BP 136/80; PULSE 86; RESP 16; O2SAT 99
== END 2025-02-27 16:48 | disposition home or self-care (01) ==
LOC: RAD 13:00
PROVIDERS: PCP Family Medicine; Referring Provider Physical Medicine & Rehabilitation; Visit Provider Physical Medicine & Rehabilitation
DX: M51.16 Intervertebral disc disorders with radiculopathy, lumbar region (principal); M48.061 Spinal stenosis, lumbar region without neurogenic claudication
CPT/HCPCS: 62323; 95886; 95912; 99152; J0702; J1100; J2250